=== PATIENT | male | born 1930 | race Caucasian/White ===

== ENCOUNTER 2017-09-10 18:55 | Observation (INO) ==
[2017-09-10] MEDS ORDERED: Ipratropium/Albuterol Neb 3 ML IH ONE (19:33)
[2017-09-10 19:34] LABS: Basophils # 0.1 K/mcL (0.0-0.2); Basophils % 0.5 %; Eosinophils # 0.2 K/mcL (0.0-0.6); Eosinophils % 1.9 %; Hematocrit 45.8 % (37.5-50.1); Hemoglobin 15.8 g/dL (12.9-16.9); Immature Granulocytes % 0.7 % (0-4); Lymphocytes # 1.8 K/mcL (0.6-4.6); Lymphocytes % 16.1 %; Mean Corpuscular HGB Conc 34.5 g/dL (31.6-35.5); Mean Corpuscular Hemoglobin 30.8 pg (28.0-33.3); Mean Corpuscular Volume 89.3 fL (83.0-100.0); Monocytes # 0.8 K/mcL (0.0-1.3); Monocytes % 6.9 %; Neutrophils # 8.2 K/mcL (1.6-8.9); Platelet Count 227 K/mcL (140-400); Red Blood Count 5.13 M/mcL (4.19-5.50); Red Cell Distribution Width 14.6 % (11.5-14.5); Segmented Neutrophils % 73.9 %
[2017-09-10 19:39] LABS: VBG HCO3 27 mEq/L (21-27); VBG PCO2 53 mmHg (41-51); VBG PH 7.32 pH Units (7.32-7.42); VBG PO2 29 mmHg (25-50)
--- NOTE | 2017-09-10 19:41 | Emergency Department Note ---
Disposition Clinical Impression: Hyperglycemia, Generalized weakness CKD (chronic kidney disease) Qualifiers: Chronic kidney disease stage: unspecified stage Qualified Code(s): N18.9 - Chronic kidney disease, unspecified Community acquired pneumonia Qualifiers: Laterality: unspecified laterality Qualified Code(s): J18.9 - Pneumonia, unspecified organism Disposition: Admitted As Inpatient Condition: Good General Adult HPI - General Chief complaint: ED Recheck/Abnormal Lab/Rx Stated complaint: blood sugar >400 x 2 wks Time Seen by Provider: 09/10/17 19:04 Source: patient Mode of arrival: private vehicle Limitations: no limitations Nursing Notes Reviewed: Yes Vital Signs Reviewed: Yes - History of Present Illness HPI Narrative: 86-year-old male history of dementia, diabetes who presents to the ER with a chief complaint of elevated blood glucose for 2 weeks. History is obtained from his significant other. She states that for the last 2 weeks his glucose readings have been over 400. No new changes in his medications. States that previously he was in the low 100s. States that there are several other issues going on which are chronic in nature including mixing at nights and days as well as intermittent delirium. He also fell out of bed yesterday which was unwitnessed and the patient is unable to say exactly what happened. 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 States that she feels nervous at times at home and is afraid taking care of him. No other complaints. Pt Subjective Complaint: Hyperglycemia Onset (ago): week(s) Pain Scale: 0 Improves with: nothing Worsens with: nothing Associated symptoms: Reports: weakness Treatments Prior to Arrival: none - Related Data Home Medications Medication Instructions Recorded Confirmed Cholecalciferol (Vitamin D3) 2,000 unit PO DAILY 05/24/15 05/06/16 [Vitamin D3] Finasteride [Proscar] 5 mg PO DAILY 05/24/15 05/06/16 Glimepiride [Amaryl] 4 mg PO DAILY 05/24/15 05/06/16 Pravastatin Sodium 10 mg PO DAILY 05/24/15 05/06/16 Sertraline [Zoloft] 50 mg PO DAILY 05/24/15 05/06/16 Tamsulosin HCl 0.4 mg PO DAILY 06/16/15 05/06/16 Azelastine 0.1% Nasal [place] 1 spray NS BID 03/09/16 05/06/16 [Astelin] Calcitriol [Rocaltrol] 0.5 mcg PO DAILY 03/09/16 05/06/16 Gabapentin [Neurontin] 300 mg PO HS 04/25/16 05/06/16 Previous Rx's Medication Instructions Recorded Docusate [Colace] 100 mg PO BID #60 capsule 06/17/15 Clopidogrel [Plavix] 75 mg PO DAILY #30 tablet 03/12/16 amLODIPine [Norvasc] 5 mg PO DAILY #30 tablet 05/07/16 Acetaminophen [Tylenol] 500 mg PO Q6HR PRN #20 tablet 03/01/17 predniSONE [PredniSONE] 20 mg PO BID #10 tablet 03/01/17 Allergies Allergy/AdvReac Type Severity Reaction Status Date / Time No Known Allergies Allergy Verified 09/10/17 18:58 All systems ED: reviewed and negative except as stated. Cardiovascular: Denies: chest pain Respiratory: Reports: cough, dyspnea Gastrointestinal: Denies: abdominal pain, nausea, vomiting Neurological: Reports: weakness. Denies: numbness, paresthesias Past Medical History - Past Medical History Attestation: Yes The following information was validated with the patient. Source: patient, obtained from family Medical history: Reports: CVA, diabetes, hyperlipidemia, hypertension, renal disease, other Surgical history: Reports: orthopedic, other Psychiatric history: Reports: no psych history - Social History Smoking Status: Current every day smoker Smokeless Tobacco Status: No Alcohol use: Reports: rarely Drug use: Reports: none Physical Exam - General Limitations: no limitations General appearance: alert, in no apparent distress - Head Head exam: atraumatic, normocephalic - Eye Eye exam: Present: normal appearance - ENT ENT exam: normal exam - Neck Neck exam: Present: normal inspection - Chest Chest inspection: Present: normal inspection, symmetric chest wall rise - Respiratory Respiratory exam: Present: wheezes (Mild end expiratory wheezing) - Cardiovascular Cardiovascular exam: Present: regular rate, normal rhythm, normal heart sounds - Abdominal Exam Abdominal exam: Present: soft, Non-Tender. Absent: tenderness - Extremities Exam Extremities exam: Present: normal inspection, full ROM - Expanded Upper Extremity Exam Shoulder exam: Present: normal inspection, full ROM Arm exam: Present: normal inspection, full ROM Elbow exam: Present: normal inspection, full ROM Forearm/Wrist exam: Present: normal inspection, full ROM Hand exam: Present: normal inspection, full ROM - Expanded Lower Extremity Exam Hip/Pelvis exam: Present: normal inspection, full ROM Upper leg exam: Present: normal inspection, full ROM Knee exam: Present: normal inspection, full ROM, abrasion (Left knee) Lower leg exam: Present: normal inspection, full ROM Ankle exam: Present: normal inspection, full ROM Foot/toe exam: Present: normal inspection, full ROM - Neurological Exam Neurological exam: Present: alert, other (GCS 15. Nonfocal. Follows commands. Moves all extremities equally.) - Skin Skin exam: Present: warm, dry Course Course Narrative: Patient seen and examined. Vital signs reviewed. Nonfocal. Plan for CT of the head as well as evaluation for potential DKA. - Reevaluation(s) Reevaluation #1: Labs reviewed. Hyperglycemic however no evidence of DKA. Patient given IV fluids. Discussed findings with patient and family. She is having trouble taking care of him at home. Plan to admit for generalized weakness, social service consultation in the morning. Vital Signs Temperature 97.8 F 09/10/17 18:59 Pulse Rate 71 09/10/17 18:59 Respiratory Rate 20 09/10/17 18:59 Blood Pressure 160/74 09/10/17 18:59 O2 Sat by Pulse Oximetry 98 09/10/17 18:59 Temperature 98.3 F 09/11/17 03:14 Pulse Rate 64 09/11/17 03:14 Respiratory Rate 15 09/11/17 03:14 Blood Pressure 121/63 09/11/17 03:14 O2 Sat by Pulse Oximetry 95 09/11/17 03:14 Oxygen Delivery Oxygen Delivery Nasal Cannula Medical Decision Making - [facility] Narrative Medical decision making narrative: 86-year-old male presents due to hyperglycemia and generalized weakness. Her glycemia for a few weeks. Also has become difficult for his significant other to care for him at home independently and she is uncomfortable with him going home. Labs reviewed here. Chest x-ray with bilateral opacities. Rocephin and Zithromax for community acquired pneumonia. Hyperglycemic with CKD however no evidence of DKA. CT head negative. Given IV fluids. Admitted for generalized weakness, hyperglycemia and for social service consultation. - Lab Data Lab results reviewed: Yes I reviewed the patient's lab results. Result diagrams: 09/10/17 19:23 09/10/17 19:23 Lab Results 09/10/17 09/10/17 09/10/17 Range/Units 19:07 19:23 19:23 WBC 11.1 (4.3-11.1) K/mcL RBC 5.13 (4.19-5.50) M/mcL Hgb 15.8 (12.9-16.9) g/dL Hct 45.8 (37.5-50.1) % MCV 89.3 (83.0-100.0) fL MCH 30.8 (28.0-33.3) pg MCHC 34.5 (31.6-35.5) g/dL RDW 14.6 H (11.5-14.5) % Plt Count 227 (140-400) K/mcL MPV 10.0 (9.4-12.4) fL Immature Gran % 0.7 (0-4) % Seg Neutrophils % 73.9 % Lymphocytes % 16.1 % Monocytes % 6.9 % Eosinophils % 1.9 % Basophils % 0.5 % Neutrophils # 8.2 (1.6-8.9) K/mcL Lymphocytes # 1.8 (0.6-4.6) K/mcL Monocytes # 0.8 (0.0-1.3) K/mcL Eosinophils # 0.2 (0.0-0.6) K/mcL Basophils # 0.1 (0.0-0.2) K/mcL VBG pH (7.32-7.42) pH Units VBG pCO2 (41-51) mmHg VBG pO2 (25-50) mmHg VBG HCO3 (21-27) mEq/L Sodium 137 (136-145) mEq/L Potassium 5.4 H (3.5-5.1) mEq/L Chloride 103 (98-107) mEq/L Carbon Dioxide 24 (23-29) mEq/L BUN 41 H (8-23) mg/dL Creatinine 3.03 H (0.70-1.30) mg/dL Est GFR ( Amer) 24 L (> 60) Est GFR (Non-Af Amer) 20 L (> 60) BUN/Creatinine Ratio 14 (6-26) Glucose 287 H (70-105) mg/dL POC Glucose 332 H (70-99) mg/dL Est Mean Plasma Glucose mg/dl Hemoglobin A1c ( - 5.6) % Calculated Osmolality 305 H (280-300) Calcium 9.5 (8.6-10.3) mg/dL Troponin I < 0.03 (< 0.04) ng/mL Beta-Hydroxybutyric Acd (0.02-0.27) mmol/L Urine Color (Yellow) Urine Clarity (Clear) Urine pH (5.0-8.0) pH Units Ur Specific [place] (1.010-1.025) Urine Protein (Neg-Trace) mg/dL Urine Glucose (UA) (Normal) mg/dL Urine Ketones (Negative) mg/dL Urine Blood (Negative) Urine Nitrite (Negative) Urine Bilirubin (Negative) Urine Urobilinogen (Normal) mg/dL Ur Leukocyte Esterase (Negative) Urine Microscopic RBC (0-3) per hpf Urine Microscopic WBC (0-3) per hpf Ur Squamous Epith Cells (None-Few) per lpf Urine Bacteria (None-Few) per hpf Hyaline Casts (None-Few) per lpf Ur Culture Indicated? (NO) 09/10/17 09/10/17 09/10/17 Range/Units 19:23 19:23 19:34 WBC (4.3-11.1) K/mcL RBC (4.19-5.50) M/mcL Hgb (12.9-16.9) g/dL Hct (37.5-50.1) % MCV (83.0-100.0) fL MCH (28.0-33.3) pg MCHC (31.6-35.5) g/dL RDW (11.5-14.5) % Plt Count (140-400) K/mcL MPV (9.4-12.4) fL Immature Gran % (0-4) % Seg Neutrophils % % Lymphocytes % % Monocytes % % Eosinophils % % Basophils % % Neutrophils # (1.6-8.9) K/mcL Lymphocytes # (0.6-4.6) K/mcL Monocytes # (0.0-1.3) K/mcL Eosinophils # (0.0-0.6) K/mcL Basophils # (0.0-0.2) K/mcL VBG pH 7.32 (7.32-7.42) pH Units VBG pCO2 53 H (41-51) mmHg VBG pO2 29 (25-50) mmHg VBG HCO3 27 (21-27) mEq/L Sodium (136-145) mEq/L Potassium (3.5-5.1) mEq/L Chloride (98-107) mEq/L Carbon Dioxide (23-29) mEq/L BUN (8-23) mg/dL Creatinine (0.70-1.30) mg/dL Est GFR ( Amer) (> 60) Est GFR (Non-Af Amer) (> 60) BUN/Creatinine Ratio (6-26) Glucose (70-105) mg/dL POC Glucose (70-99) mg/dL Est Mean Plasma Glucose 169 mg/dl Hemoglobin A1c 7.5 H ( - 5.6) % Calculated Osmolality (280-300) Calcium (8.6-10.3) mg/dL Troponin I (< 0.04) ng/mL Beta-Hydroxybutyric Acd 0.18 (0.02-0.27) mmol/L Urine Color (Yellow) Urine Clarity (Clear) Urine pH (5.0-8.0) pH Units Ur Specific [place] (1.010-1.025) Urine Protein (Neg-Trace) mg/dL Urine Glucose (UA) (Normal) mg/dL Urine Ketones (Negative) mg/dL Urine Blood (Negative) Urine Nitrite (Negative) Urine Bilirubin (Negative) Urine Urobilinogen (Normal) mg/dL Ur Leukocyte Esterase (Negative) Urine Microscopic RBC (0-3) per hpf Urine Microscopic WBC (0-3) per hpf Ur Squamous Epith Cells (None-Few) per lpf Urine Bacteria (None-Few) per hpf Hyaline Casts (None-Few) per lpf Ur Culture Indicated? (NO) 09/10/17 Range/Units 20:00 WBC (4.3-11.1) K/mcL RBC (4.19-5.50) M/mcL Hgb (12.9-16.9) g/dL Hct (37.5-50.1) % MCV (83.0-100.0) fL MCH (28.0-33.3) pg MCHC (31.6-35.5) g/dL RDW (11.5-14.5) % Plt Count (140-400) K/mcL MPV (9.4-12.4) fL Immature Gran % (0-4) % Seg Neutrophils % % Lymphocytes % % Monocytes % % Eosinophils % % Basophils % % Neutrophils # (1.6-8.9) K/mcL Lymphocytes # (0.6-4.6) K/mcL Monocytes # (0.0-1.3) K/mcL Eosinophils # (0.0-0.6) K/mcL Basophils # (0.0-0.2) K/mcL VBG pH (7.32-7.42) pH Units VBG pCO2 (41-51) mmHg VBG pO2 (25-50) mmHg VBG HCO3 (21-27) mEq/L Sodium (136-145) mEq/L Potassium (3.5-5.1) mEq/L Chloride (98-107) mEq/L Carbon Dioxide (23-29) mEq/L BUN (8-23) mg/dL Creatinine (0.70-1.30) mg/dL Est GFR ( Amer) (> 60) Est GFR (Non-Af Amer) (> 60) BUN/Creatinine Ratio (6-26) Glucose (70-105) mg/dL POC Glucose (70-99) mg/dL Est Mean Plasma Glucose mg/dl Hemoglobin A1c ( - 5.6) % Calculated Osmolality (280-300) Calcium (8.6-10.3) mg/dL Troponin I (< 0.04) ng/mL Beta-Hydroxybutyric Acd (0.02-0.27) mmol/L Urine Color Yellow (Yellow) Urine Clarity Clear (Clear) Urine pH 6.0 (5.0-8.0) pH Units Ur Specific [place] 1.017 (1.010-1.025) Urine Protein 100 H (Neg-Trace) mg/dL Urine Glucose (UA) >=1000 H (Normal) mg/dL Urine Ketones Negative (Negative) mg/dL Urine Blood Negative (Negative) Urine Nitrite Negative (Negative) Urine Bilirubin Negative (Negative) Urine Urobilinogen Normal (Normal) mg/dL Ur Leukocyte Esterase Negative (Negative) Urine Microscopic RBC 0-3 (0-3) per hpf Urine Microscopic WBC 3-5 H (0-3) per hpf Ur Squamous Epith Cells Moderate H (None-Few) per lpf Urine Bacteria None Seen (None-Few) per hpf Hyaline Casts None Seen (None-Few) per lpf Ur Culture Indicated? NO (NO) - Radiology Data Radiology results reviewed: Yes I reviewed the patient's radiology results. Head CT 09/10/17 19:33 IMPRESSION: 1. No acute intracranial abnormality 2. 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 3. Chronic bilateral mastoid air cell effusions. D/ / Darrius Lozada MD / Darrius Lozada MD Interpreting Provider: Darrius Lozada MD - EKG Data EKG #1 EKG attestation: Yes I reviewed and interpreted this EKG. EKG results narrative: EKG demonstrates sinus rhythm rate 61 bpm. Normal axis. Normal intervals. Normal R-wave progression. Nonspecific ST-T wave changes in lead 3. No gross ST elevations or depressions. No acute ischemic findings. No significant changes from previous EKG dated 05/06/16. Attestation Statement - Attestation Attestation: I examined this patient and my medical decision-making was reviewed with the Resident Physician. I agree with the documented findings, disposition and treatment plan as described except to the extent set forth below. Findings consistent with possible pneumonia as well as hyperglycemia. We will admit for further management of metabolic derangements as well as infectious processes.:
[2017-09-10 20:09] LABS: Bilirubin,Urine Negative (Negative); Blood,Urine Negative (Negative); Clarity,Urine Clear (Clear); Color,Urine Yellow (Yellow); Glucose,Urine (UA) >=1000 mg/dL (Normal); Ketones,Urine Negative (Negative); Leukocyte Esterase,Urine Negative (Negative); Nitrite,Urine Negative (Negative); Protein,Urine 100 mg/dL (Neg-Trace); Specific Gravity,Urine 1.017 (1.010-1.025); Urobilinogen,Urine Normal (Normal)
[2017-09-10 20:11] LABS: Bacteria,Urine None Seen per hpf (None-Few); Hyaline Casts,Urine None Seen per lpf (None-Few); RBC,Urine 0-3 per hpf (0-3); Squamous Epithelial Cell,Urine Moderate per lpf (None-Few)
[2017-09-10 20:18] LABS: Estimated Average Glucose 169 mg/dl; Hemoglobin A1C 7.5 %
[2017-09-10 20:24] LABS: BUN/Creatinine Ratio 14 (6-26); Blood Urea Nitrogen 41 mg/dL (8-23); Calcium 9.5 mg/dL (8.6-10.3); Carbon Dioxide 24 mEq/L (23-29); Chloride 103 mEq/L (98-107); Glucose 287 mg/dL (70-105); Osmolality,Calculated 305 (280-300); Potassium 5.4 mEq/L (3.5-5.1); Sodium 137 mEq/L (136-145); eGFR For African Americans 24 (> 60); eGFR For Non-African Americans 20 (> 60)
[2017-09-10 20:27] LABS: Troponin I < 0.03 ng/mL (< 0.04)
[2017-09-10] MEDS ORDERED: 0.9 % Sodium Chloride 1,000 ML IVC ONE (20:31)
[2017-09-10] MEDS ORDERED: Azithromycin 500 MG in D5% in Water 250 ML IVPB ONE (21:11)
[2017-09-10] MEDS ORDERED: cefTRIAXone 1,000 MG in Water for inj. (sterile) 20 ML 10 ML IVP ONE (21:11)
[2017-09-10] MEDS ORDERED: Acetaminophen 325 MG TABLET PO PRN (23:12)
[2017-09-10] MEDS ORDERED: Dextrose Gel 15 GM/37.5 ML TUBE PO PRN ×2 (23:12)
[2017-09-10] MEDS ORDERED: D5% in Water 1,000 ML IVC PRN (23:12)
[2017-09-10] MEDS ORDERED: *HR* Dextrose 50 % in Water (Syg) 50 ML SYRINGE IVP PRN (23:12)
[2017-09-10] MEDS ORDERED: Naloxone 0.4 MG/ML INJ IVP PRN (23:12)
--- NOTE | 2017-09-10 23:12 | Internal Med History&Physical ---
Date of Encounter: 09/10/17 Time of Encounter: 23:00 Internal Medicine - H&P: HPI Chief complaint: high blood sugars Admitted From: Emergency Dept Plans for Post Hospital Care: Transfer Shelter Facility History of present illness: Mr. Soria is a 86 year old male patient with a history of dementia, hypertension , diabetes, presented to the ER with complaints of high blood sugars. His blood sugars have been running high since 1 week. Has mostly been in the 200s but today was noted to be in the 400s and so he was brought into the ER. Patient is unable to provide history and history has been obtained from his . Patient currently denies any chest pain or palpitations. He has been having chronic cough but has not noted any changes recently. No sputum production. No fever or chills reported. His is the sole provider for him and so far she has been able to manage him at home. However patient appears to be having increasing episodes of delirium at home with worsening memory loss. Past Med Surg Social Fam HX - Past Medical History Source: obtained from family Medical history: CVA, diabetes, hyperlipidemia, hypertension, renal disease, other Additional medical history: BPH Psychiatric history: no psych history - Past Surgical History Surgical History: orthopedic, other Additional surgical history: neck surgery - Social History Smoking Status: Current every day smoker Smokeless Tobacco Status: No Alcohol use: rarely Drug use: none - Family History Sister Living Status: Hx Family Cardiac Disorders: No Hx Family Respiratory Disorders: No Hx Family Cancer: Yes Hx Family GI Disorders: No Hx Family Endocrine Disorder: No Hx Family Neuromuscular Disorders: No Hx Family Neurologic Disorders: No Hx Family HEENT Disorders: No Hx Family Autoimmune Disorders: No Brother Living Status: Still Living Hx Family Cardiac Disorders: Yes Hx Family Respiratory Disorders: No Hx Family Cancer: No Hx Family GI Disorders: No Hx Family Endocrine Disorder: Yes (diabetes) Hx Family Neuromuscular Disorders: No Hx Family Neurologic Disorders: No Hx Family HEENT Disorders: No Hx Family Autoimmune Disorders: No Father Living Status: Mother Adopted: No Family Member Ethnicity: Non- Living Status: Hx Family Cardiac Disorders: Yes (CHF) Hx Family Respiratory Disorders: No Hx Family Cancer: No Hx Family GI Disorders: No Hx Family Endocrine Disorder: No Hx Family Neuromuscular Disorders: No Hx Family Neurologic Disorders: No Hx Family HEENT Disorders: No Hx Family Autoimmune Disorders: No Internal Medicine - H&P: Meds Cholecalciferol (Vitamin D3) [Vitamin D3] 2,000 unit PO DAILY 05/24/15 [History] Finasteride [Proscar] 5 mg PO DAILY 05/24/15 [History] Glimepiride [Amaryl] 4 mg PO DAILY 05/24/15 [History] Pravastatin Sodium 10 mg PO DAILY 05/24/15 [History] Sertraline [Zoloft] 50 mg PO DAILY 05/24/15 [History] Tamsulosin HCl 0.4 mg PO DAILY 06/16/15 [History] Docusate [Colace] 100 mg PO BID #60 capsule 06/17/15 [Rx] Azelastine 0.1% Nasal [place] [Astelin] 1 spray NS BID 03/09/16 [History] Calcitriol [Rocaltrol] 0.5 mcg PO DAILY 03/09/16 [History] Clopidogrel [Plavix] 75 mg PO DAILY #30 tablet 03/12/16 [Rx] Gabapentin [Neurontin] 300 mg PO HS 04/25/16 [History] amLODIPine [Norvasc] 5 mg PO DAILY #30 tablet 05/07/16 [Rx] Acetaminophen [Tylenol] 500 mg PO Q6HR PRN #20 tablet 03/01/17 [Rx] predniSONE [PredniSONE] 20 mg PO BID #10 tablet 03/01/17 [Rx] 3 Allergy/AdvReac Type Severity Reaction Status Date / Time No Known Allergies Allergy Verified 09/10/17 18:58 All Systems PM: A 10-system review of systems was performed and is negative for pertinent findings except as documented above in the HPI. - Constitutional Constitutional: malaise, no chills, no fever(s), no night sweats - EENT Eyes: no change in vision, no discharge, no pain, no photophobia Ears: no ear discharge, no ear pain, no tinnitus Nose, mouth and throat: no dysphagia, no nasal discharge, no neck pain, no sore throat - Cardiovascular Cardiovascular ROS IM: no chest pain, no diaphoresis, no dyspnea, no lightheadedness, no palpitations, no syncope - Integumentary Integumentary IM: no rash, no unusual bruising - Neurological Neurological ROS: no confusion, no convulsions, no focal weakness, no numbness, no tingling, no tremor(s) - Psychiatric Psychiatric: confusion, memory loss - Hematologic/Lymphatic Hematologic/Lymphatic: no easy bruising - Constitutional Vitals: Temp Pulse Resp BP Pulse Ox 97.8 F 64 16 142/68 94 09/10/17 18:59 09/10/17 22:30 09/10/17 22:30 09/10/17 22:30 09/10/17 22:30 General appearance: Present: cooperative, A&O X 1, pleasant, answers questions appropriately - Eye Eye exam: Present: EOMI, conjuntiva pink, sclera anicteric - Neck Neck exam general surgery: Present: supple, trachea midline. Absent: lymphadenopathy - Respiratory Respiratory exam: Present: CTAB. Absent: accessory muscle use, rales, rhonchi, wheezes - Cardiovascular Cardiovascular exam: Present: RRR, +S1, +S2. Absent: diastolic murmur, gallop, rubs, systolic murmur - GI/Abdominal GI/Abdominal exam: Present: normal bowel sounds, soft, no peritoneal signs. Absent: distended, tenderness - Extremities Exam Extremities exam: Present: warm, radial pulses palpable and symmetrical. Absent : calf tenderness, cyanotic, pedal edema - Neurological Exam Neurological exam: Present: alert, CN II-XII intact, no focal deficits. Absent : facial droop, speech deficit - Skin Skin exam: Present: dry, intact Internal Med - H&P Results - Labs CBC & Chem 7: 09/10/17 19:23 09/10/17 19:23 - Impressions Impressions Head CT 09/10/17 19:33 IMPRESSION: 1. No acute intracranial abnormality 2. 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 3. Chronic bilateral mastoid air cell effusions. D/ / Darrius Lozada MD / Darrius Lozada MD Interpreting Provider: Darrius Lozada MD Chest X-Ray 09/10/17 20:32 IMPRESSION: Bilateral perihilar opacities suspicious for pneumonia or edema. D/ / 09/10/2017 21:08:55 David Negro MD / nemo Interpreting Provider: David Negro MD - Assessment and plan (1) Pneumonia Current Visit: Yes Status: Suspected Assessment and plan: Chest x-ray shows bilateral perihilar airspace disease concerning for pneumonia or edema. We will start patient on empiric antibiotics for now. Follow blood cultures. Reevaluate with repeat chest x-ray. Moderate risk for complications. Qualifiers: Pneumonia type: due to Pneumococcus Laterality: bilateral Lung location: unspecified part of lung Qualified Code(s): J13 - Pneumonia due to Streptococcus pneumoniae (2) CKD (chronic kidney disease) stage 3, GFR 30-59 ml/min Current Visit: Yes Status: Chronic Assessment and plan: Creatinine slightly elevated over baseline. We will follow renal function in dose medications accordingly. Avoid nephrotoxic agents. (3) Dementia Current Visit: Yes Status: Chronic Assessment and plan: With reported intermittent episodes of confusion at home. Will monitor for signs of delirium. Fall precautions. Qualifiers: Dementia type: Alzheimer's disease Alzheimer's disease onset: unspecified onset Dementia behavioral disturbance: without behavioral disturbance Qualified Code(s): G30.9 - Alzheimer's disease, unspecified; F02.80 - Dementia in other diseases classified elsewhere without behavioral disturbance (4) Hyperkalemia Current Visit: Yes Status: Acute Assessment and plan: Potassium is 5.4. Patient received albuterol nebs in the ER. We will recheck levels in the morning. (5) Hypertension Current Visit: No Status: Chronic Qualifiers: Hypertension type: essential hypertension Qualified Code(s): I10 - Essential (primary) hypertension (6) Type 2 diabetes mellitus Current Visit: Yes Status: Chronic Assessment and plan: Blood sugar 287 on arrival here. A1c 7.5. We will place him on sliding scale insulin coverage and diabetic diet. Qualifiers: Diabetes mellitus manager intermediate insulin use: without longterm use Diabetes mellitus complication status: with kidney complications Diabetes mellitus complication detail: with chronic kidney disease Chronic kidney disease stage : stage 3 (moderate) Qualified Code(s): E11.22 - Type 2 diabetes mellitus with diabetic chronic kidney disease; N18.3 - Chronic kidney disease, stage 3 ( moderate) (7) Hypertension Current Visit: Yes Status: Chronic Assessment and plan: Monitor blood pressure. Continue amlodipine. Qualifiers: Hypertension type: essential hypertension Qualified Code(s): I10 - Essential (primary) hypertension - Time Spent With Patient Total time spent is greater than 50% in coordination of care (as documented) at patient's floor/unit and/or counseling patient:
[2017-09-10] MEDS: *HR* HYDROcodone/Acet 5/325 mg TABLET PO PRN (23:57)
[2017-09-11] MEDS ORDERED: Ipratropium/Albuterol Neb 3 ML IH PRN (00:23)
[2017-09-11] MEDS: *HR* Heparin 5,000 UNIT/ML VIAL SQ SCH ×2 (05:44→17:40)
[2017-09-11 07:13] LABS: Basophils # 0.1 K/mcL (0.0-0.2); Basophils % 0.6 %; Eosinophils # 0.3 K/mcL (0.0-0.6); Eosinophils % 2.2 %; Hematocrit 39.4 % (37.5-50.1); Immature Granulocytes % 0.5 % (0-4); Lymphocytes # 2.2 K/mcL (0.6-4.6); Lymphocytes % 18.5 %; Mean Corpuscular HGB Conc 33.2 g/dL (31.6-35.5); Mean Corpuscular Hemoglobin 29.8 pg (28.0-33.3); Mean Corpuscular Volume 89.7 fL (83.0-100.0); Mean Platelet Volume 10.4 fL (9.4-12.4); Neutrophils # 8.5 K/mcL (1.6-8.9); Platelet Count 220 K/mcL (140-400); Red Blood Count 4.39 M/mcL (4.19-5.50); Red Cell Distribution Width 14.4 % (11.5-14.5); Segmented Neutrophils % 70.2 %
[2017-09-11 07:20] LABS: Calcium 8.6 mg/dL (8.6-10.3); Hemoglobin 13.1 g/dL (12.9-16.9); Potassium 4.4 mEq/L (3.5-5.1)
[2017-09-11] MEDS: Insulin LISPRO 300 UNITS/3 ML VIAL SQ SCH ×4 (08:00→21:30)
[2017-09-11] MEDS: cefTRIAXone 2,000 MG in Water for inj. (sterile) 20 ML 20 ML IVPB SCH (09:40)
[2017-09-11] MEDS: amLODIPine 5 MG TABLET PO SCH (09:40)
[2017-09-11] MEDS: Azithromycin 250 MG TABLET PO SCH (09:40)
--- NOTE | 2017-09-11 10:58 | Internal Med Progress Note ---
Date of Encounter: 09/11/17 Time of Encounter: 10:54 - Assessment and plan (1) Pneumonia Current Visit: Yes Status: Suspected Assessment and plan: Chest x-ray shows bilateral perihilar airspace disease concerning for pneumonia or edema Mild leukocytosis with WBC of 12.1 Patient denies any shortness of breath, lungs clear/diminished throughout AP and L Continue empiric antibiotics for now (Zithromax and Rocephin). Follow blood cultures Legionella and strep pneumo antigen-f/u Reevaluate with repeat chest x-ray in a.m. Qualifiers: Pneumonia type: due to Pneumococcus Laterality: bilateral Lung location: unspecified part of lung Qualified Code(s): J13 - Pneumonia due to Streptococcus pneumoniae (2) Hypertension Current Visit: Yes Status: Chronic Assessment and plan: Hypertension, BP stable. Continue Norvasc monitor at adjunct therapy as needed Qualifiers: Hypertension type: essential hypertension Qualified Code(s): I10 - Essential (primary) hypertension (3) Type 2 diabetes mellitus Current Visit: Yes Status: Chronic Assessment and plan: Hyperglycemia, in the setting of type 2 diabetes. Patient reports blood glucose normally well controlled He has been having blood glucose readings in the 200-400 range over the last week Blood sugar 287 on arrival here. A1c 7.5. Placed on sliding scale insulin coverage with basal coverage and diabetic diet Episode of hypoglycemia this morning, correct Blood glucose improving this morning, continue current insulin regimen and adjust as necessary Qualifiers: Diabetes mellitus care home insulin use: without care home use Diabetes mellitus complication status: with kidney complications Diabetes mellitus complication detail: with chronic kidney disease Chronic kidney disease stage : stage 3 (moderate) Qualified Code(s): E11.22 - Type 2 diabetes mellitus with diabetic chronic kidney disease; N18.3 - Chronic kidney disease, stage 3 ( moderate) (4) Hyperkalemia Current Visit: Yes Status: Resolved Assessment and plan: Potassium is 5.4. Patient received albuterol nebs in the ER. Hyperkalemia resolved, daily labs (5) CKD (chronic kidney disease) stage 3, GFR 30-59 ml/min Current Visit: Yes Status: Chronic Assessment and plan: Serum creatinine and patient's baseline, We will follow renal function in dose medications accordingly. Avoid nephrotoxic agents. (6) Dementia Current Visit: Yes Status: Chronic Assessment and plan: With reported intermittent episodes of confusion at home. Will monitor for signs of delirium. Fall precautions. Qualifiers: Dementia type: Alzheimer's disease Alzheimer's disease onset: unspecified onset Dementia behavioral disturbance: without behavioral disturbance Qualified Code(s): G30.9 - Alzheimer's disease, unspecified; F02.80 - Dementia in other diseases classified elsewhere without behavioral disturbance - Time Spent With Patient Total time spent is greater than 50% in coordination of care (as documented) at patient's floor/unit and/or counseling patient: 25 - 35 minutes - Subjective Interval history: No acute changes overnight, patient seen and examined at bedside today. Reports that he is not short of breath. Reports he feels much better than admission now that his blood glucose has been controlled. - Constitutional Vitals: Temp Pulse Resp BP Pulse Ox 97.8 F 66 18 134/66 93 09/11/17 06:39 09/11/17 06:39 09/11/17 06:39 09/11/17 06:39 09/11/17 09:56 General appearance: Present: cooperative, A&O X 1, pleasant, answers questions appropriately - Head Head exam: Present: atraumatic, normocephalic - Eye Eye exam: Present: PERRL, conjuntiva pink, sclera anicteric Pupils: Present: PERRL - Neck Neck exam general surgery: Present: supple, trachea midline. Absent: lymphadenopathy - Respiratory Respiratory exam: Present: decreased breath sounds, CTAB. Absent: accessory muscle use, rales, rhonchi, wheezes - Cardiovascular Cardiovascular exam: Present: RRR, +S1, +S2. Absent: diastolic murmur, gallop, rubs, systolic murmur - GI/Abdominal GI/Abdominal exam: Present: normal bowel sounds, soft, no peritoneal signs. Absent: distended, tenderness - Extremities Exam Extremities exam: Present: warm, radial pulses palpable and symmetrical. Absent : calf tenderness, cyanotic, pedal edema - Neurological Exam Neurological exam: Present: CN II-XII intact, oriented X3, no focal deficits. Absent: pronater drift, facial droop, speech deficit - Skin Skin exam: Present: dry, intact Internal Medicine: Result - Labs CBC & Chem 7: 09/11/17 05:51 09/11/17 05:51 Labs: Short CBC 09/11/17 Range/Units 05:51 WBC 12.1 H (4.3-11.1) K/mcL Hgb 13.1 D (12.9-16.9) g/dL Hct 39.4 (37.5-50.1) % Plt Count 220 (140-400) K/mcL Neutrophils # 8.5 (1.6-8.9) K/mcL [facility] 09/11/17 05:51 Sodium 140 Potassium 4.4 Chloride 113 H Carbon Dioxide 22 L BUN 36 H Creatinine 2.73 H Glucose 59 L Calcium 8.6 Consult Discharge Plan - Plan Referrals: Ramandeep eGrber MD [Primary Care Provider] -
[2017-09-11] MEDS ORDERED: Insulin DETEMIR 100 UNIT/ML X5UNITS SQ SCH (21:00)
[2017-09-11] MEDS: Gabapentin 300 MG CAPSULE PO SCH (21:34)
[2017-09-12] MEDS: *HR* Heparin 5,000 UNIT/ML VIAL SQ SCH ×2 (06:01→17:54)
[2017-09-12 08:08] LABS: Basophils # 0.1 K/mcL (0.0-0.2); Basophils % 0.6 %; Eosinophils # 0.1 K/mcL (0.0-0.6); Eosinophils % 1.3 %; Hematocrit 43.7 % (37.5-50.1); Immature Granulocytes % 0.7 % (0-4); Lymphocytes # 1.8 K/mcL (0.6-4.6); Lymphocytes % 17.8 %; Mean Corpuscular HGB Conc 33.6 g/dL (31.6-35.5); Mean Corpuscular Volume 89.2 fL (83.0-100.0); Mean Platelet Volume 10.7 fL (9.4-12.4); Monocytes # 0.9 K/mcL (0.0-1.3); Monocytes % 8.6 %; Platelet Count 215 K/mcL (140-400); Red Cell Distribution Width 14.6 % (11.5-14.5)
[2017-09-12 08:11] LABS: Hemoglobin 14.7 g/dL (12.9-16.9)
[2017-09-12] MEDS: amLODIPine 5 MG TABLET PO SCH (09:05)
[2017-09-12] MEDS: Azithromycin 250 MG TABLET PO SCH (09:05)
[2017-09-12] MEDS: cefTRIAXone 2,000 MG in Water for inj. (sterile) 20 ML 20 ML IVPB SCH (09:05)
[2017-09-12] MEDS: Insulin LISPRO 300 UNITS/3 ML VIAL SQ SCH ×3 (09:06→21:31)
[2017-09-12 10:20] LABS: Calcium 9.2 mg/dL (8.6-10.3); Potassium 4.3 mEq/L (3.5-5.1)
--- NOTE | 2017-09-12 18:28 | Internal Med Progress Note ---
Date of Encounter: 09/12/17 Time of Encounter: 18:26 - Assessment and plan (1) Pneumonia Current Visit: Yes Status: Suspected Assessment and plan: Admitted for hyperglycemia Imaging CXR with incidental fidings of bilateral perihilar airspace disease concerning for pneumonia or edema Repeat CXR today shows mildly worsening bilateral lung opacities superimposed on chronic lung changes edema versus pneumonia Does not appear volume overloaded Respiratory status stable, lungs clear/diminished throughout AP and L, afebrile , WBC improving with ABX 9.9 today Continue empiric antibiotics for now (Zithromax and Rocephin). Follow blood cultures Legionella and strep pneumo antigen-negative. Qualifiers: Pneumonia type: due to Pneumococcus Laterality: bilateral Lung location: unspecified part of lung Qualified Code(s): J13 - Pneumonia due to Streptococcus pneumoniae (2) Hypertension Current Visit: Yes Status: Chronic Assessment and plan: Hypertension, BP stable. Continue Norvasc monitor at adjunct therapy as needed Qualifiers: Hypertension type: essential hypertension Qualified Code(s): I10 - Essential (primary) hypertension (3) Type 2 diabetes mellitus Current Visit: Yes Status: Chronic Assessment and plan: Hyperglycemia, in the setting of type 2 diabetes. Patient reports blood glucose normally well controlled He has been having blood glucose readings in the 200-400 range over the last week Blood sugar 287 on arrival here. A1c 7.5. 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: without intermediate manager use Diabetes mellitus complication status: with kidney complications Diabetes mellitus complication detail: with chronic kidney disease Chronic kidney disease stage : stage 3 (moderate) Qualified Code(s): E11.22 - Type 2 diabetes mellitus with diabetic chronic kidney disease; N18.3 - Chronic kidney disease, stage 3 ( moderate) (4) Hyperkalemia Current Visit: Yes Status: Resolved Assessment and plan: Potassium is 4.3 (5) CKD (chronic kidney disease) stage 3, GFR 30-59 ml/min Current Visit: Yes Status: Chronic Assessment and plan: Serum creatinine and patient's baseline, We will follow renal function in dose medications accordingly. Avoid nephrotoxic agents. (6) Dementia Current Visit: Yes Status: Chronic Assessment and plan: With reported intermittent episodes of confusion at home. Will monitor for signs of delirium. Fall precautions. Qualifiers: Dementia type: Alzheimer's disease Alzheimer's disease onset: unspecified onset Dementia behavioral disturbance: without behavioral disturbance Qualified Code(s): G30.9 - Alzheimer's disease, unspecified; F02.80 - Dementia in other diseases classified elsewhere without behavioral disturbance - Time Spent With Patient Total time spent is greater than 50% in coordination of care (as documented) at patient's floor/unit and/or counseling patient: 25 - 35 minutes - Subjective Interval history: No acute changes overnight, patient seen and examined at bedside today. Reports that he is not short of breath denies cough. Reports he feels much better than admission now that his blood glucose has been controlled. - Constitutional Vitals: Temp Pulse Resp BP Pulse Ox 98.0 F 63 15 165/85 93 09/12/17 15:21 09/12/17 15:21 09/12/17 15:21 09/12/17 15:21 09/12/17 15:21 General appearance: Present: cooperative, A&O X 1, pleasant, answers questions appropriately - Head Head exam: Present: atraumatic, normocephalic - Eye Eye exam: Present: PERRL, conjuntiva pink, sclera anicteric Pupils: Present: PERRL - Neck Neck exam general surgery: Present: supple, trachea midline. Absent: lymphadenopathy - Respiratory Respiratory exam: Present: CTAB. Absent: accessory muscle use, rales, rhonchi, wheezes - Cardiovascular Cardiovascular exam: Present: RRR, +S1, +S2. Absent: diastolic murmur, gallop, rubs, systolic murmur - GI/Abdominal GI/Abdominal exam: Present: normal bowel sounds, soft, no peritoneal signs. Absent: distended, tenderness - Extremities Exam Extremities exam: Present: warm, radial pulses palpable and symmetrical. Absent : calf tenderness, cyanotic, pedal edema - Neurological Exam Neurological exam: Present: CN II-XII intact, oriented X3, no focal deficits. Absent: pronater drift, facial droop, speech deficit - Skin Skin exam: Present: dry, intact Internal Medicine: Result - Labs CBC & Chem 7: 09/12/17 06:28 09/12/17 06:28 Labs: Short CBC 09/12/17 Range/Units 06:28 WBC 9.9 (4.3-11.1) K/mcL Hgb 14.7 D (12.9-16.9) g/dL Hct 43.7 (37.5-50.1) % Plt Count 215 (140-400) K/mcL Neutrophils # 7.0 (1.6-8.9) K/mcL BMP 09/12/17 06:28 Sodium 141 Potassium 4.3 Chloride 113 H Carbon Dioxide 21 L BUN 35 H Creatinine 2.53 H Glucose 66 L Calcium 9.2 - Impressions Impressions Chest X-Ray 09/12/17 06:00 IMPRESSION: There is mildly worsening bilateral lung opacities superimposed on chronic lung change. This could be due to edema or pneumonia. D/ / Luis Antonio Garcia MD / Luis Antonio Garcia MD Interpreting Provider: Luis Antonio Garcia MD Consult Discharge Plan - Plan Referrals: Ashley Dunlap MD [Primary Care Provider] -
[2017-09-12] MEDS: *HR* HYDROcodone/Acet 5/325 mg TABLET PO PRN (21:44)
[2017-09-12] MEDS: Gabapentin 300 MG CAPSULE PO SCH (21:45)
[2017-09-12] MEDS: Insulin DETEMIR 100 UNIT/ML X5UNITS SQ SCH (21:45)
[2017-09-13] MEDS: *HR* Heparin 5,000 UNIT/ML VIAL SQ SCH ×2 (06:00→17:39)
[2017-09-13 08:28] LABS: Basophils # 0.1 K/mcL (0.0-0.2); Basophils % 0.5 %; Eosinophils # 0.2 K/mcL (0.0-0.6); Eosinophils % 2.3 %; Hematocrit 46.5 % (37.5-50.1); Hemoglobin 15.5 g/dL (12.9-16.9); Immature Granulocytes % 0.4 % (0-4); Lymphocytes # 1.8 K/mcL (0.6-4.6); Lymphocytes % 18.3 %; Mean Corpuscular HGB Conc 33.3 g/dL (31.6-35.5); Mean Corpuscular Hemoglobin 29.2 pg (28.0-33.3); Mean Corpuscular Volume 87.6 fL (83.0-100.0); Mean Platelet Volume 10.2 fL (9.4-12.4); Monocytes # 0.9 K/mcL (0.0-1.3); Monocytes % 9.3 %; Neutrophils # 6.8 K/mcL (1.6-8.9); Platelet Count 213 K/mcL (140-400); Red Blood Count 5.31 M/mcL (4.19-5.50); Red Cell Distribution Width 14.5 % (11.5-14.5); Segmented Neutrophils % 69.2 %
[2017-09-13] MEDS: amLODIPine 5 MG TABLET PO SCH (08:33)
[2017-09-13] MEDS: Azithromycin 250 MG TABLET PO SCH (08:33)
[2017-09-13] MEDS: cefTRIAXone 2,000 MG in Water for inj. (sterile) 20 ML 20 ML IVPB SCH (08:33)
[2017-09-13] MEDS: Insulin LISPRO 300 UNITS/3 ML VIAL SQ SCH ×4 (08:34→21:49)
[2017-09-13 08:45] LABS: Calcium 9.3 mg/dL (8.6-10.3); Potassium 4.2 mEq/L (3.5-5.1)
--- NOTE | 2017-09-13 16:47 | Electrocardiograph Report ---
[address] [place], [place] [address] Test Date: 2017-09-10 Pat Name: Ari Soria Department: 104 Room: 3B Gender: M Community Dietitian: [facility] : 1930 Requested By: Sage Coello Order Number: [id number] Reading MD: Arias Skelton Measurements Intervals [place] Rate: 61 P: 71 DC: 186 QRS: -20 QRSD: 110 T: 37 QT: 396 QTc: 398 Interpretive Statements ELECTRONIC ATRIAL PACEMAKER BASELINE ARTIFACT Electronically Signed On 09-13-2017 16:46:03 EDT by Arias Skelton
--- NOTE | 2017-09-13 19:00 | Internal Med Progress Note ---
Date of Encounter: 09/13/17 Time of Encounter: 09:50 - Assessment and plan (1) Hypertension Current Visit: Yes Status: Chronic Assessment and plan: Chronic. Continue home medications. Stable. Qualifiers: Hypertension type: essential hypertension Qualified Code(s): I10 - Essential (primary) hypertension (2) Type 2 diabetes mellitus Current Visit: Yes Status: Chronic Assessment and plan: A1c 7.5% in 09/10/17. Poorly controlled. Continue sliding scale insulin, Accu-Cheks before meals and at bedtime, diabetic diet. 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 (4) CKD (chronic kidney disease) stage 3, GFR 30-59 ml/min Current Visit: Yes Status: Chronic Assessment and plan: Function continues to improve. Serum creatinine 2.6, GFR 23. These actually appear to be the patient's recent baseline. Continue to monitor labs and avoid nephrotoxic agents. (5) Dementia Current Visit: Yes Status: Chronic Assessment and plan: reports that patient has returned to baseline. Continue to monitor for safety and falls. Qualifiers: Dementia type: Alzheimer's disease Alzheimer's disease onset: unspecified onset Dementia behavioral disturbance: without behavioral disturbance Qualified Code(s): G30.9 - Alzheimer's disease, unspecified; F02.80 - Dementia in other diseases classified elsewhere without behavioral disturbance (6) Pneumonia Current Visit: Yes Status: Suspected Assessment and plan: Patient denies chest pain, shortness of breath, productive cough. 65 score 2 points moderate risk 6.8% 30 day mortality. He is not requiring supplemental oxygen at this time. Other vitals are stable. Patient is afebrile. Continue empiric antibiotics of Zithromax and Rocephin for community-acquired pneumonia. Legionella and strep pneumo were negative. Transition patient to by mouth antibiotics and look at discharging tomorrow. Qualifiers: Pneumonia type: due to Pneumococcus Laterality: bilateral Lung location: unspecified part of lung Qualified Code(s): J13 - Pneumonia due to Streptococcus pneumoniae - Time Spent With Patient Total time spent is greater than 50% in coordination of care (as documented) at patient's floor/unit and/or counseling patient: less than 15 minutes - Subjective Interval history: She was seen and assessed initially at 9:50 AM. He was drowsy. His physical exam was unremarkable, patient stated that he wanted to go to sleep was unable to answer questions. Later, he went back and was visiting with patient and . He denies any headache or blurred vision. He denies any nausea or vomiting, no abdominal pain. He states that he is feeling better and does not have shortness of breath or chest pain. Discussed at length patient's plan of care with , she verbalized understanding. Patient verbalized frustration with having to stay, states that he wants to go home and we will discuss again tomorrow. Patient was pleasant. - Constitutional Vitals: Temp Pulse Resp BP Pulse Ox 98.1 F 64 14 141/63 94 09/13/17 18:34 09/13/17 18:34 09/13/17 18:34 09/13/17 18:34 09/13/17 18:34 General appearance: Present: cooperative, A&O X 1, pleasant, no acute distress, answers questions appropriately - Head Head exam: Present: atraumatic, normal inspection, normocephalic - Eye Eye exam: Present: normal appearance, conjuntiva pink, sclera anicteric - Neck Neck exam general surgery: Present: supple, trachea midline. Absent: lymphadenopathy, tenderness - Respiratory Respiratory exam: Present: decreased breath sounds, CTAB. Absent: accessory muscle use, chest wall tenderness, rales, respiratory distress, rhonchi, wheezes - Cardiovascular Cardiovascular exam: Present: RRR, +S1, +S2. Absent: diastolic murmur, gallop, rubs, systolic murmur - GI/Abdominal GI/Abdominal exam: Present: normal bowel sounds, soft. Absent: distended, hepatomegaly, tenderness - Extremities Exam Extremities exam: Present: normal capillary refill, normal inspection, warm, radial pulses palpable and symmetrical. Absent: calf tenderness, cyanotic, pedal edema, tenderness - Neurological Exam Neurological exam: Present: alert, oriented X3, no focal deficits. Absent: facial droop, speech deficit - Skin Skin exam: Present: dry, intact, normal color, warm. Absent: rash Internal Medicine: Result - Labs CBC & Chem 7: 09/13/17 06:30 09/13/17 06:30 Labs: Short CBC 09/13/17 Range/Units 06:30 WBC 9.8 (4.3-11.1) K/mcL Hgb 15.5 (12.9-16.9) g/dL Hct 46.5 (37.5-50.1) % Plt Count 213 (140-400) K/mcL Neutrophils # 6.8 (1.6-8.9) K/mcL BMP 09/13/17 06:30 Sodium 140 Potassium 4.2 Chloride 111 H Carbon Dioxide 20 L BUN 33 H Creatinine 2.60 H Glucose 56 L Calcium 9.3 Consult Discharge Plan - Plan Referrals: Ashley Dunlap MD [Primary Care Provider] - 09/22/17 11:30 am
[2017-09-13] MEDS: Gabapentin 300 MG CAPSULE PO SCH (21:44)
[2017-09-13] MEDS: Insulin DETEMIR 100 UNIT/ML X5UNITS SQ SCH (22:50)
[2017-09-14 05:16] LABS: Basophils # 0.1 K/mcL (0.0-0.2); Basophils % 0.7 %; Eosinophils # 0.3 K/mcL (0.0-0.6); Eosinophils % 2.8 %; Hematocrit 46.7 % (37.5-50.1); Hemoglobin 15.6 g/dL (12.9-16.9); Immature Granulocytes % 0.6 % (0-4); Lymphocytes # 1.9 K/mcL (0.6-4.6); Mean Corpuscular HGB Conc 33.4 g/dL (31.6-35.5); Mean Corpuscular Hemoglobin 29.1 pg (28.0-33.3); Mean Corpuscular Volume 87.1 fL (83.0-100.0); Mean Platelet Volume 10.1 fL (9.4-12.4); Monocytes % 9.9 %; Neutrophils # 7.1 K/mcL (1.6-8.9); Platelet Count 196 K/mcL (140-400); Red Blood Count 5.36 M/mcL (4.19-5.50); Red Cell Distribution Width 14.5 % (11.5-14.5)
[2017-09-14] MEDS: *HR* Heparin 5,000 UNIT/ML VIAL SQ SCH (05:45)
[2017-09-14 07:39] LABS: Calcium 9.2 mg/dL (8.6-10.3); Potassium 4.3 mEq/L (3.5-5.1)
[2017-09-14] MEDS: Insulin LISPRO 300 UNITS/3 ML VIAL SQ SCH ×2 (09:45→12:27)
[2017-09-14] MEDS: amLODIPine 5 MG TABLET PO SCH (09:45)
[2017-09-14] MEDS: cefTRIAXone 2,000 MG in Water for inj. (sterile) 20 ML 20 ML IVPB SCH (09:45)
[2017-09-14] MEDS: Azithromycin 250 MG TABLET PO SCH (09:45)
[2017-09-14 12:00] VITALS: BP 149/77
--- NOTE | 2017-09-14 12:27 | Discharge Summary ---
- NOTES TO OUTPATIENT PROVIDER Notes to Outpatient Provider: Pt was admitted and treated for CAP. Pt has improved on IV antibiotics and will continue course of antibiotics at home. Date of Encounter: 09/14/17 Time of Encounter: 12:00 - Discharge Diagnosis (1) Hypertension Priority: Secondary Status: Chronic Assessment and Plan: Stable. Continue home medications. Qualifiers: Hypertension type: essential hypertension Qualified Code(s): I10 - Essential (primary) hypertension (2) Type 2 diabetes mellitus Priority: Secondary Status: Chronic Assessment and Plan: Poorly controlled with elevated A1c. Continue home medications. 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 (4) CKD (chronic kidney disease) stage 3, GFR 30-59 ml/min Priority: Secondary Status: Chronic Assessment and Plan: Renal function showing continued improvement. Serum creatinine 2.56, GFR 24. At patient's baseline. Follow with primary care. (5) Dementia Priority: Secondary Status: Chronic Assessment and Plan: Patient at baseline mentation. Qualifiers: Dementia type: Alzheimer's disease Alzheimer's disease onset: unspecified onset Dementia behavioral disturbance: without behavioral disturbance Qualified Code(s): G30.9 - Alzheimer's disease, unspecified; F02.80 - Dementia in other diseases classified elsewhere without behavioral disturbance (6) Pneumonia Priority: Secondary Status: Suspected Assessment and Plan: Patient denies chest pain, shortness of breath, productive cough, states that he is ready to go home and feels good. Curb 65 score 2 points moderate risk 6.8% 30 day mortality. Patient is on room air. He is afebrile vitals are stable. Continue Zithromax po at home Qualifiers: Pneumonia type: due to Pneumococcus Laterality: bilateral Lung location: unspecified part of lung Qualified Code(s): J13 - Pneumonia due to Streptococcus pneumoniae Hospital course: Mr. Soria is a 86 year old male with past medical history of renal lesion, chronic renal failure, diabetes, dementia, hypertension, CVA. Patient presented to the emergency department from home with complaint of elevated blood sugars. Patient is hyperglycemic with blood glucose as high as 400. Patient reported chronic cough, no chest pain or sputum production. No fever or chills. Patient was found to have pneumonia by chest x-ray showing bilateral. Hilar airspace disease concerning for pneumonia or edema. He remained afebrile without any sirs criteria. Respiratory status was stable and lungs are clear and diminished throughout with no wheezing, rales, rhonchi or respiratory distress. He remained afebrile and without leukocytosis. Blood cultures were negative as were Legionella and strep pneumo antigens. History with IV Rocephin and Zithromax. He recovered well and is back to baseline. He is not requiring supplemental oxygen. He will finish his course of Zithromax after discharge. He is stable and appropriate for discharge. Discharge discussed with: family - Time Spent with Patient Total time spent providing and/or coordinating discharge services: Less than 30 minutes - Discharge Medications Prescriptions: Azithromycin [Zithromax] 500 mg PO DAILY #4 tablet Home Medications: Cholecalciferol (Vitamin D3) [Vitamin D3] 2,000 unit PO DAILY 05/24/15 [History] Finasteride [Proscar] 5 mg PO DAILY 05/24/15 [History] Glimepiride [Amaryl] 4 mg PO DAILY 05/24/15 [History] Pravastatin Sodium 10 mg PO DAILY 05/24/15 [History] Sertraline [Zoloft] 50 mg PO DAILY 05/24/15 [History] Docusate [Colace] 100 mg PO BID #60 capsule 06/17/15 [Rx] Azelastine 0.1% Nasal [place] [Astelin] 1 spray NS BID 03/09/16 [History] Calcitriol [Rocaltrol] 0.5 mcg PO DAILY 03/09/16 [History] Clopidogrel [Plavix] 75 mg PO DAILY #30 tablet 03/12/16 [Rx] Gabapentin [Neurontin] 300 - 600 mg PO HS 04/25/16 [History] amLODIPine [Norvasc] 5 mg PO DAILY #30 tablet 05/07/16 [Rx] Acetaminophen [Tylenol] 500 mg PO Q6HR PRN 09/11/17 [History] Donepezil [Aricept] 5 mg PO HS 09/11/17 [History] SitaGLIPtin [Januvia] 25 mg PO DAILY 09/11/17 [History] Tamsulosin [Flomax] 0.4 mg PO DAILY 09/11/17 [History] Azithromycin [Zithromax] 500 mg PO DAILY #4 tablet 09/14/17 [Rx] Allergies/Adverse Reactions: 3 Allergy/AdvReac Type Severity Reaction Status Date / Time No Known Allergies Allergy Verified 09/10/17 18:58 Date of admission: 09/10/17 21:57 Primary care physician: Ashley Gerber[facility] Consults: 09/11/17 01:49 Consult to Diesel Motor Mechanic [CONS] Routine Reason for SW Consult: Pt states concern about caring for him at home alone. Discharging clinician: Brianda Calderon Anticipated date of discharge: 09/14/17 - Constitutional Vitals: Temp Pulse Resp BP Pulse Ox 97.7 F 61 16 149/77 96 09/14/17 11:59 09/14/17 11:59 09/14/17 11:59 09/14/17 11:59 09/14/17 11:59 General appearance: Present: A&O X 1, no acute distress, answers questions appropriately. Absent: cooperative, pleasant - Head Head exam: Present: atraumatic, normal inspection, normocephalic - Eye Eye exam: Present: normal appearance, conjuntiva pink, sclera anicteric - Neck Neck exam general surgery: Present: supple, trachea midline. Absent: lymphadenopathy, tenderness - Respiratory Respiratory exam: Present: CTAB. Absent: accessory muscle use, rales, respiratory distress, rhonchi, wheezes - Cardiovascular Cardiovascular exam: Present: RRR, +S1, +S2. Absent: diastolic murmur, gallop, rubs, systolic murmur - GI/Abdominal GI/Abdominal exam: Present: normal bowel sounds, soft. Absent: distended, hepatomegaly, tenderness - Extremities Exam Extremities exam: Present: normal capillary refill, normal inspection, warm, radial pulses palpable and symmetrical. Absent: calf tenderness, cyanotic, pedal edema - Neurological Exam Neurological exam: Present: alert, motor sensory deficit, oriented X3, no focal deficits. Absent: facial droop, speech deficit - Skin Skin exam: Present: dry, intact, normal color, warm. Absent: rash - Patient Status Disposition: Home, Self-Care Functional capacity at discharge: independent ambulation Overall status at discharge: patient is progressing back to baseline - Discharge Instructions Follow Up With: Ashley Dunlap MD [Primary Care Provider] - 09/22/17 11:30 am Additional Instructions: Please see your PCP in the next 5-7 days for a recheck. Return to the ER as needed for any other problems or concerns. Take your medications as directed, your new prescription is at your pharmacy. Return to your normal diet and activites as tolerated. - Diet and Activity Activity: increase activity as tolerated Diet: advance to your usual diet
--- NOTE | 2017-09-14 14:28 | Physician Discharge Referral ---
Home Health/Hosp Referral Info Transfer to: Home Health Provider in Charge Post Discharge: PCP - Diagnosis (1) Hypertension Priority: Secondary Status: Chronic (2) Type 2 diabetes mellitus Priority: Secondary Status: Chronic (3) Hyperkalemia Priority: Secondary Status: Resolved (4) CKD (chronic kidney disease) stage 3, GFR 30-59 ml/min Priority: Secondary Status: Chronic (5) Dementia Priority: Secondary Status: Chronic (6) Pneumonia Priority: Primary Status: Acute - Respiratory Orders Smoking Cessation: Smoking cessation has been advised. For more information, call the [place] Tobacco Quit Line at 3-272-CFCM-NOW. - Diet/Nutrition Diet/Nutrition Orders: Regular - Activity Activity Orders: Up ad britton - Services Needed Following services are medically necessary services: Nursing, Home Health Aide, Physical Therapy, Occupational Therapy - Transfer Medications Prescriptions: Azithromycin [Zithromax] 500 mg PO DAILY #4 tablet Home Medications: Cholecalciferol (Vitamin D3) [Vitamin D3] 2,000 unit PO DAILY 05/24/15 [History] Finasteride [Proscar] 5 mg PO DAILY 05/24/15 [History] Glimepiride [Amaryl] 4 mg PO DAILY 05/24/15 [History] Pravastatin Sodium 10 mg PO DAILY 05/24/15 [History] Sertraline [Zoloft] 50 mg PO DAILY 05/24/15 [History] Docusate [Colace] 100 mg PO BID #60 capsule 06/17/15 [Rx] Azelastine 0.1% Nasal [place] [Astelin] 1 spray NS BID 03/09/16 [History] Calcitriol [Rocaltrol] 0.5 mcg PO DAILY 03/09/16 [History] Clopidogrel [Plavix] 75 mg PO DAILY #30 tablet 03/12/16 [Rx] Gabapentin [Neurontin] 300 - 600 mg PO HS 04/25/16 [History] amLODIPine [Norvasc] 5 mg PO DAILY #30 tablet 05/07/16 [Rx] Acetaminophen [Tylenol] 500 mg PO Q6HR PRN 09/11/17 [History] Donepezil [Aricept] 5 mg PO HS 09/11/17 [History] SitaGLIPtin [Januvia] 25 mg PO DAILY 09/11/17 [History] Tamsulosin [Flomax] 0.4 mg PO DAILY 09/11/17 [History] Azithromycin [Zithromax] 500 mg PO DAILY #4 tablet 09/14/17 [Rx] Allergies/Adverse Reactions: 3 Allergy/AdvReac Type Severity Reaction Status Date / Time No Known Allergies Allergy Verified 09/10/17 18:58 Certification: Further, I certify that my clinical findings support that this patient is homebound (i.e. absences from home require considerable and taxing effort and are for medical reasons or voodoo services or infrequently or short duration when for other reasons) because: Homebound Reason: Patient requires assistance of a person or device to safely leave home, Leaving home requires considerable and taxing effort due to condition, Altered mental status requiring supervision when leaving home Attestation: My signature below is to certify that this patient is under my care and that I, or nurse practitioner, or a physician's administrative library assistant working with me, has a face-to -face encounter with this patient.
== END 2017-09-14 14:50 | disposition home or self-care (01) ==
LOC: 3BNU 18:55 → EMEROO 18:55 → 3BNU 23:20
PROVIDERS: ADMIT Internal Medicine; ATTEND Internal Medicine

== ENCOUNTER 2017-09-16 12:19 | Inpatient (IN) ==
[2017-09-16] MEDS ORDERED: Azithromycin 500 MG in D5% in Water 250 ML IVPB ONE (12:52)
[2017-09-16] MEDS ORDERED: cefTRIAXone 1,000 MG in Water for inj. (sterile) 20 ML 10 ML IVP ONE (12:52)
[2017-09-16] MEDS ORDERED: 0.9 % Sodium Chloride 500 ML IVC ONE (12:54)
--- NOTE | 2017-09-16 13:12 | Emergency Department Note ---
Disposition Clinical Impression: Chronic kidney disease (CKD) Qualifiers: Chronic kidney disease stage: unspecified stage Qualified Code(s): N18.9 - Chronic kidney disease, unspecified Dementia Qualifiers: Dementia type: unspecified type Dementia behavioral disturbance: without behavioral disturbance Qualified Code(s): F03.90 - Unspecified dementia without behavioral disturbance Community acquired pneumonia Qualifiers: Laterality: right Lung location: lower lobe of lung Qualified Code(s): J18.1 - Lobar pneumonia, unspecified organism UTI (urinary tract infection) Qualifiers: Urinary tract infection type: site unspecified Hematuria presence: without hematuria Qualified Code(s): N39.0 - Urinary tract infection, site not specified Disposition: Admitted As Inpatient Condition: Good Referrals: Ashley Dunlap MD [Primary Care Provider] - Forms: ED Satisfaction Letter Time of Disposition: 15:14 SOB HPI - General Chief Complaint: ED Shortness of Breath/Dyspnea Stated Complaint: ERICKA Time Seen by Provider: 09/16/17 12:41 Source: patient Limitations: no limitations Nursing Notes Reviewed: Yes Vital Signs Reviewed: Yes - History of Present Illness History is provided mainly by patient's . This is an 86 year-old male with history of HTN, HLD, poorly controlled type 2 diabetes, CKD stage 3, s/p pacer, and dementia. He was admitted 4-5 days ago with CAP, discharged 2 days ago on azithromycin. He presents with dyspnea, worsening for the past day, associated with productive cough, lethargy, and generalized weakness. He was sent to the ED from Dr. Castro's office, where he also reported a headache and seemed to be having trouble holding himself up. At the time of evaluation, patient is somnolent. He denies headache and chest pain. No recent fevers. Patient is a heavy smoker, but does not carry diagnosis of COPD and does not use home O2. Pt Subjective Complaint: shortness of breath Onset (ago): day(s) (2) Context: recent illness (recent admission for CAP) Severity: moderate Consistency/Duration: gradually worsening Improves with: nothing Worsens with: nothing Known history of: diabetes Associated symptoms: Reports: cough, sputum production. Denies: chest pain, fever, lower extremity pain, hemoptysis, abdominal pain Cough present: Yes Cough Frequency: Intermittent Sputum Amount: Small Sputum Color: Clear - Related Data Home oxygen amount: none Home Medications Medication Instructions Recorded Confirmed Cholecalciferol (Vitamin D3) 2,000 unit PO DAILY 05/24/15 09/16/17 [Vitamin D3] Finasteride [Proscar] 5 mg PO DAILY 05/24/15 09/16/17 Glimepiride [Amaryl] 4 mg PO DAILY 05/24/15 09/16/17 Pravastatin Sodium 10 mg PO DAILY 05/24/15 09/16/17 Sertraline [Zoloft] 50 mg PO DAILY 05/24/15 09/16/17 Azelastine 0.1% Nasal [place] 1 spray NS BID 03/09/16 09/16/17 [Astelin] Calcitriol [Rocaltrol] 0.5 mcg PO DAILY 03/09/16 09/16/17 Gabapentin [Neurontin] 300 - 600 mg PO HS 04/25/16 09/16/17 Acetaminophen [Tylenol] 500 mg PO Q6HR PRN 09/11/17 09/16/17 Donepezil [Aricept] 5 mg PO HS 09/11/17 09/16/17 SitaGLIPtin [Januvia] 25 mg PO DAILY 09/11/17 09/16/17 Tamsulosin [Flomax] 0.4 mg PO DAILY 09/11/17 09/16/17 Previous Rx's Medication Instructions Recorded Docusate [Colace] 100 mg PO BID #60 capsule 06/17/15 Clopidogrel [Plavix] 75 mg PO DAILY #30 tablet 03/12/16 amLODIPine [Norvasc] 5 mg PO DAILY #30 tablet 05/07/16 Azithromycin [Zithromax] 500 mg PO DAILY #4 tablet 09/14/17 Allergies Allergy/AdvReac Type Severity Reaction Status Date / Time No Known Allergies Allergy Verified 09/10/17 18:58 Limitations: ROS unobtainable due to patients medical condition Constitutional: Denies: fever Cardiovascular: Denies: chest pain Respiratory: Reports: cough, dyspnea, sputum production (white/clear) Gastrointestinal: Denies: abdominal pain, vomiting Neurological: Reports: headache (apparently resolved). Denies: weakness (none focal), numbness (none focal) Endocrine: Reports: fatigue Past Medical History - Past Medical History Medical history: Reports: CVA, dementia, diabetes, hyperlipidemia, hypertension , renal disease, other Surgical history: Reports: orthopedic, other Psychiatric history: Reports: no psych history - Social History Smoking Status: Heavy tobacco smoker Smokeless Tobacco Status: No Alcohol use: Reports: rarely Drug use: Reports: none Physical Exam - General Limitations: no limitations General appearance: alert, lethargic - Head Head exam: atraumatic, normocephalic - Eye Eye exam: Present: normal appearance, PERRL, EOMI, miosis ( says he's not on narcotic pain meds). Absent: scleral icterus - ENT ENT exam: mucous membranes dry - Neck Neck exam: Absent: meningismus - Respiratory Respiratory exam: Present: normal lung sounds bilaterally, other (frequent cough ). Absent: respiratory distress, wheezes - Cardiovascular Cardiovascular exam: Present: regular rate, normal rhythm, normal heart sounds - Abdominal Exam Abdominal exam: Present: soft, Non-Tender. Absent: distention - Extremities Exam Extremities exam: Present: normal inspection. Absent: pedal edema, calf tenderness - Neurological Exam Neurological exam: Present: other (somnolent, arouses to voice, answers simple questions appropriately). Absent: CN II-XII intact, motor sensory deficit - Skin Skin exam: Present: warm, dry, intact Course - Reevaluation(s) Reevaluation #1: Discussed test results with patient's . She is in agreement with admission. Time: 15:14 - Consultations Consultation #1: Reviewed case with Dr. Ramirez, and patient accepted for admission Time: 15:32 Vital Signs Temperature 97.9 F 09/16/17 12:25 Pulse Rate 59 09/16/17 12:25 Respiratory Rate 18 09/16/17 12:25 Blood Pressure 139/73 09/16/17 12:25 O2 Sat by Pulse Oximetry 93 09/16/17 12:25 Temperature 97.9 F 09/16/17 12:25 Pulse Rate 61 09/16/17 13:45 Respiratory Rate 16 09/16/17 13:45 Blood Pressure 147/71 09/16/17 13:45 O2 Sat by Pulse Oximetry 99 09/16/17 13:45 Oxygen Delivery Oxygen Delivery Nasal Cannula Shortness of Breath/Dyspnea - Lab Data Result diagrams: 09/16/17 12:30 09/16/17 12:30 Lab Results 09/16/17 09/16/17 09/16/17 Range/Units 12:30 12:30 12:30 WBC 11.1 (4.3-11.1) K/mcL RBC 5.10 (4.19-5.50) M/mcL Hgb 15.0 (12.9-16.9) g/dL Hct 45.7 (37.5-50.1) % MCV 89.6 (83.0-100.0) fL MCH 29.4 (28.0-33.3) pg MCHC 32.8 (31.6-35.5) g/dL RDW 14.6 H (11.5-14.5) % Plt Count 205 (140-400) K/mcL MPV 10.6 (9.4-12.4) fL Immature Gran % 0.5 (0-4) % Seg Neutrophils % 75.1 % Lymphocytes % 15.8 % Monocytes % 6.3 % Eosinophils % 1.7 % Basophils % 0.6 % Neutrophils # 8.3 (1.6-8.9) K/mcL Lymphocytes # 1.8 (0.6-4.6) K/mcL Monocytes # 0.7 (0.0-1.3) K/mcL Eosinophils # 0.2 (0.0-0.6) K/mcL Basophils # 0.1 (0.0-0.2) K/mcL ABG pH (7.32-7.45) pH Units ABG pCO2 (35-45) mmHg ABG pO2 (85-104) mmHg ABG HCO3 (21-27) mEq/L ABG Total CO2 (20-26) mEq/L ABG O2 Saturation (95-98) % ABG Base Excess (-2 to 3) mEq/L O2 Delivery Device Inspired O2 (1-15=lpm ld35-381=%) Sodium 137 (136-145) mEq/L Potassium 4.2 (3.5-5.1) mEq/L Chloride 108 H (98-107) mEq/L Carbon Dioxide 21 L (23-29) mEq/L BUN 43 H (8-23) mg/dL Creatinine 2.84 H (0.70-1.30) mg/dL Est GFR ( Amer) 26 L (> 60) Est GFR (Non-Af Amer) 21 L (> 60) BUN/Creatinine Ratio 15 (6-26) Glucose 298 H (70-105) mg/dL Calculated Osmolality 306 H (280-300) Lactic Acid (0.5-2.2) mmol/L Calcium 9.0 (8.6-10.3) mg/dL Total Bilirubin 0.3 (0.3-1.0) mg/dL Direct Bilirubin 0.1 (0.0-0.2) mg/dL Indirect Bilirubin 0.2 (0.0-1.2) mg/dL AST 13 (13-39) Units/L ALT 12 (7-52) Units/L Alkaline Phosphatase 68 (34-104) Units/L Troponin I < 0.03 (< 0.04) ng/mL B-Natriuretic Peptide 53 (Less than 100) pg/mL Serum Total Protein 6.6 (6.4-8.9) g/dL Albumin 3.9 (3.5-5.7) g/dL Globulin 2.7 (2.4-3.5) g/dL Albumin/Globulin Ratio 1.4 (1.1-2.2) Urine Color (Yellow) Urine Clarity (Clear) Urine pH (5.0-8.0) pH Units Ur Specific [place] (1.010-1.025) Urine Protein (Neg-Trace) mg/dL Urine Glucose (UA) (Normal) mg/dL Urine Ketones (Negative) mg/dL Urine Blood (Negative) Urine Nitrite (Negative) Urine Bilirubin (Negative) Urine Urobilinogen (Normal) mg/dL Ur Leukocyte Esterase (Negative) Urine Microscopic RBC (0-3) per hpf Urine Microscopic WBC (0-3) per hpf Ur Squamous Epith Cells (None-Few) per lpf Amorphous Sediment (Few) Urine Bacteria (None-Few) per hpf Ur Culture Indicated? (NO) 09/16/17 09/16/17 09/16/17 Range/Units 13:13 13:34 14:25 WBC (4.3-11.1) K/mcL RBC (4.19-5.50) M/mcL Hgb (12.9-16.9) g/dL Hct (37.5-50.1) % MCV (83.0-100.0) fL MCH (28.0-33.3) pg MCHC (31.6-35.5) g/dL RDW (11.5-14.5) % Plt Count (140-400) K/mcL MPV (9.4-12.4) fL Immature Gran % (0-4) % Seg Neutrophils % % Lymphocytes % % Monocytes % % Eosinophils % % Basophils % % Neutrophils # (1.6-8.9) K/mcL Lymphocytes # (0.6-4.6) K/mcL Monocytes # (0.0-1.3) K/mcL Eosinophils # (0.0-0.6) K/mcL Basophils # (0.0-0.2) K/mcL ABG pH 7.33 (7.32-7.45) pH Units ABG pCO2 37 (35-45) mmHg ABG pO2 85 (85-104) mmHg ABG HCO3 20 L (21-27) mEq/L ABG Total CO2 21 (20-26) mEq/L ABG O2 Saturation 96 (95-98) % ABG Base Excess -6 L (-2 to 3) mEq/L O2 Delivery Device Cannula Inspired O2 3.0 (1-15=lpm ud51-645=%) Sodium (136-145) mEq/L Potassium (3.5-5.1) mEq/L Chloride (98-107) mEq/L Carbon Dioxide (23-29) mEq/L BUN (8-23) mg/dL Creatinine (0.70-1.30) mg/dL Est GFR ( Amer) (> 60) Est GFR (Non-Af Amer) (> 60) BUN/Creatinine Ratio (6-26) Glucose (70-105) mg/dL Calculated Osmolality (280-300) Lactic Acid 1.2 (0.5-2.2) mmol/L Calcium (8.6-10.3) mg/dL Total Bilirubin (0.3-1.0) mg/dL Direct Bilirubin (0.0-0.2) mg/dL Indirect Bilirubin (0.0-1.2) mg/dL AST (13-39) Units/L ALT (7-52) Units/L Alkaline Phosphatase (34-104) Units/L Troponin I (< 0.04) ng/mL B-Natriuretic Peptide (Less than 100) pg/mL Serum Total Protein (6.4-8.9) g/dL Albumin (3.5-5.7) g/dL Globulin (2.4-3.5) g/dL Albumin/Globulin Ratio (1.1-2.2) Urine Color Yellow (Yellow) Urine Clarity Clear (Clear) Urine pH 5.5 (5.0-8.0) pH Units Ur Specific [place] 1.020 (1.010-1.025) Urine Protein 100 H (Neg-Trace) mg/dL Urine Glucose (UA) 250 H (Normal) mg/dL Urine Ketones Negative (Negative) mg/dL Urine Blood Negative (Negative) Urine Nitrite Negative (Negative) Urine Bilirubin Negative (Negative) Urine Urobilinogen Normal (Normal) mg/dL Ur Leukocyte Esterase Negative (Negative) Urine Microscopic RBC 0-3 (0-3) per hpf Urine Microscopic WBC 5-15 H (0-3) per hpf Ur Squamous Epith Cells Many H (None-Few) per lpf Amorphous Sediment Many H (Few) Urine Bacteria Moderate H (None-Few) per hpf Ur Culture Indicated? NO (NO) - Radiology Data Radiology results reviewed: Yes I reviewed the patient's radiology results. XR/XR chest 1V portable IMPRESSION: Chronic interstitial changes. Increased lung changes in the right lung base which are concerning for a superimposed infiltrate. Follow up to resolution is suggested. CT/CT head/brain wo con IMPRESSION: No acute intracranial abnormality. Cerebral atrophy. Mild chronic small vessel ischemic disease. Remote lacunar infarct in the left basal ganglia. - EKG Data EKG attestation: Yes I reviewed and interpreted this EKG. EKG results narrative: Atrial paced at 61 Interpretation: Reports: unchanged when compared to prior tracing (date) (09/10/17 )
[2017-09-16 13:15] LABS: Basophils # 0.1 K/mcL (0.0-0.2); Basophils % 0.6 %; Eosinophils # 0.2 K/mcL (0.0-0.6); Eosinophils % 1.7 %; Hematocrit 45.7 % (37.5-50.1); Immature Granulocytes % 0.5 % (0-4); Lymphocytes # 1.8 K/mcL (0.6-4.6); Lymphocytes % 15.8 %; Mean Corpuscular HGB Conc 32.8 g/dL (31.6-35.5); Mean Corpuscular Hemoglobin 29.4 pg (28.0-33.3); Mean Corpuscular Volume 89.6 fL (83.0-100.0); Mean Platelet Volume 10.6 fL (9.4-12.4); Monocytes # 0.7 K/mcL (0.0-1.3); Monocytes % 6.3 %; Neutrophils # 8.3 K/mcL (1.6-8.9); Platelet Count 205 K/mcL (140-400); Red Cell Distribution Width 14.6 % (11.5-14.5); Segmented Neutrophils % 75.1 %
[2017-09-16 13:39] LABS: Troponin I < 0.03 ng/mL (< 0.04)
[2017-09-16 13:40] LABS: Alanine Aminotransferase 12 Units/L (7-52); Albumin 3.9 g/dL (3.5-5.7); Albumin/Globulin Ratio 1.4 (1.1-2.2); Alkaline Phosphatase 68 Units/L (34-104); Aspartate Amino Transferase 13 Units/L (13-39); BUN/Creatinine Ratio 15 (6-26); Bilirubin,Direct 0.1 mg/dL (0.0-0.2); Bilirubin,Indirect 0.2 mg/dL (0.0-1.2); Bilirubin,Total 0.3 mg/dL (0.3-1.0); Blood Urea Nitrogen 43 mg/dL (8-23); Carbon Dioxide 21 mEq/L (23-29); Chloride 108 mEq/L (98-107); Globulin 2.7 g/dL (2.4-3.5); Glucose 298 mg/dL (70-105); Osmolality,Calculated 306 (280-300); Potassium 4.2 mEq/L (3.5-5.1); Sodium 137 mEq/L (136-145); Total Protein 6.6 g/dL (6.4-8.9); eGFR For African Americans 26 (> 60); eGFR For Non-African Americans 21 (> 60)
[2017-09-16 13:43] LABS: Bilirubin,Urine Negative (Negative); Blood,Urine Negative (Negative); Clarity,Urine Clear (Clear); Color,Urine Yellow (Yellow); Glucose,Urine (UA) 250 mg/dL (Normal); Ketones,Urine Negative (Negative); Leukocyte Esterase,Urine Negative (Negative); Nitrite,Urine Negative (Negative); PH,Urine 5.5 pH Units (5.0-8.0); Protein,Urine 100 mg/dL (Neg-Trace); Urobilinogen,Urine Normal (Normal)
[2017-09-16 13:58] LABS: Amorphous Sediment,Urine Many (Few); Squamous Epithelial Cell,Urine Many per lpf (None-Few)
[2017-09-16 13:59] LABS: Bacteria,Urine Moderate per hpf (None-Few); RBC,Urine 0-3 per hpf (0-3)
[2017-09-16 14:30] LABS: ABG Base Excess -6 mEq/L (-2 to 3); ABG HCO3 20 mEq/L (21-27); ABG Oxygen Saturation 96 % (95-98); ABG PCO2 37 mmHg (35-45); ABG PH 7.33 pH Units (7.32-7.45); ABG PO2 85 mmHg (85-104); ABG TCO2 21 mEq/L (20-26)
--- NOTE | 2017-09-16 18:12 | Electrocardiograph Report ---
[place] [id number] Test Date: 2017-09-16 Pat Name: Ari Soria Department: 103 Room: 3B12 Gender: M Channel Executive: : 1930 Requested By: Robert Carroll Order Number: [id number] Reading MD: Arias Skelton Measurements Intervals [place] Rate: 61 P: 69 NM: 208 QRS: -31 QRSD: 98 T: 35 QT: 390 QTc: 394 Interpretive Statements ELECTRONIC ATRIAL PACEMAKER MARKED LEFT AXIS DEVIATION INCOMPLETE RIGHT BUNDLE BRANCH BLOCK Electronically Signed On 09-16-2017 18:11:00 EDT by Arias Skelton
--- NOTE | 2017-09-16 19:27 | Internal Med History&Physical ---
Date of Encounter: 09/16/17 Time of Encounter: 19:22 Internal Medicine - H&P: HPI Admitted From: Emergency Dept Plans for Post Hospital Care: Home History of present illness: Mr. Soria is a 86 year old male HTN, HLD, poorly controlled type 2 DM, CVA, CKD stage 3, s/p pacer, and dementia. Pt states he had been progressively SB. He unaware of hx of COPD and he is still a current smoker. He states he is not on home oxygen. Denies hx of heart failure. He denies cough/fever/chills/ N/V/Diarrhea. Denies CP. Denies LE or orthopnea. Pt was apparently admitted four days ago and discharged 2 days ago on Zithromax and Rocephin. Pt had reported to Ed that he had been weak and having productive cough. He was sent to the ED from Dr. Castro's office, where he also reported a headache and seemed to be having trouble holding himself up. He was reported to e somnolent in the ED but that has since resolved and he is more alert during my eval. CODE STATUS: FULL In ED WBC 11.1, hgb 15.0, hct 45.7, plt 205. Na 137, K 4.2, BUN 43, Creatinine 2.84, glucose 298. ABG pH 7.33, pCO2 37, pO2 85, HCO3 20. Non-contrast head CT IMPRESSION: No acute intracranial abnormality. Cerebral atrophy. Mild chronic small vessel ischemic disease. Remote lacunar infarct in the left basal ganglia. Chest x ray IMPRESSION: Chronic interstitial lung disease. Increased lung changes in the right lung base which are concerning for a superimposed infiltrate. Follow up to resolution is suggested. Past Med Surg Social Fam HX - Past Medical History Medical history: CVA, dementia, diabetes, hyperlipidemia, hypertension, renal disease, other Additional medical history: CVA - 2016 -. Stage IV Renal Failure Psychiatric history: no psych history - Past Surgical History Surgical History: orthopedic, other Additional surgical history: neck surgery - Social History Smoking Status: Heavy tobacco smoker Smokeless Tobacco Status: No Alcohol use: rarely Drug use: none - Family History Sister Living Status: Hx Family Cardiac Disorders: No Hx Family Respiratory Disorders: No Hx Family Cancer: Yes Hx Family GI Disorders: No Hx Family Endocrine Disorder: No Hx Family Neuromuscular Disorders: No Hx Family Neurologic Disorders: No Hx Family HEENT Disorders: No Hx Family Autoimmune Disorders: No Brother Living Status: Still Living Hx Family Cardiac Disorders: Yes Hx Family Respiratory Disorders: No Hx Family Cancer: No Hx Family GI Disorders: No Hx Family Endocrine Disorder: Yes (diabetes) Hx Family Neuromuscular Disorders: No Hx Family Neurologic Disorders: No Hx Family HEENT Disorders: No Hx Family Autoimmune Disorders: No Father Living Status: Mother Adopted: No Family Member Ethnicity: Non- Living Status: Hx Family Cardiac Disorders: Yes (CHF) Hx Family Respiratory Disorders: No Hx Family Cancer: No Hx Family GI Disorders: No Hx Family Endocrine Disorder: No Hx Family Neuromuscular Disorders: No Hx Family Neurologic Disorders: No Hx Family HEENT Disorders: No Hx Family Autoimmune Disorders: No Internal Medicine - H&P: Meds Cholecalciferol (Vitamin D3) [Vitamin D3] 2,000 unit PO DAILY 05/24/15 [History] Finasteride [Proscar] 5 mg PO DAILY 05/24/15 [History] Glimepiride [Amaryl] 4 mg PO DAILY 05/24/15 [History] Pravastatin Sodium 10 mg PO DAILY 05/24/15 [History] Sertraline [Zoloft] 50 mg PO DAILY 05/24/15 [History] Docusate [Colace] 100 mg PO BID #60 capsule 06/17/15 [Rx] Azelastine 0.1% Nasal [place] [Astelin] 1 spray NS BID 03/09/16 [History] Calcitriol [Rocaltrol] 0.5 mcg PO DAILY 03/09/16 [History] Clopidogrel [Plavix] 75 mg PO DAILY #30 tablet 03/12/16 [Rx] Gabapentin [Neurontin] 300 - 600 mg PO HS 04/25/16 [History] amLODIPine [Norvasc] 5 mg PO DAILY #30 tablet 05/07/16 [Rx] Acetaminophen [Tylenol] 500 mg PO Q6HR PRN 09/11/17 [History] Donepezil [Aricept] 5 mg PO HS 09/11/17 [History] SitaGLIPtin [Januvia] 25 mg PO DAILY 09/11/17 [History] Tamsulosin [Flomax] 0.4 mg PO DAILY 09/11/17 [History] Azithromycin [Zithromax] 500 mg PO DAILY #4 tablet 09/14/17 [Rx] 3 Allergy/AdvReac Type Severity Reaction Status Date / Time No Known Allergies Allergy Verified 09/10/17 18:58 All Systems PM: A 10-system review of systems was performed and is negative for pertinent findings except as documented above in the HPI. - Constitutional Vitals: Temp Pulse Resp BP Pulse Ox 97.8 F 70 16 136/75 96 09/16/17 18:16 09/16/17 18:16 09/16/17 18:16 09/16/17 18:16 09/16/17 18:16 General appearance: Present: A&O X 3, pleasant, no acute distress - Head Head exam: Present: atraumatic, normocephalic - Eye Eye exam: Present: PERRL, conjuntiva pink, sclera anicteric Pupils: Present: PERRL - Neck Neck exam general surgery: Present: supple, trachea midline. Absent: lymphadenopathy - Respiratory Respiratory exam: Present: CTAB. Absent: accessory muscle use, rales, rhonchi, wheezes - Cardiovascular Cardiovascular exam: Present: RRR, +S1, +S2. Absent: diastolic murmur, gallop, rubs, systolic murmur - GI/Abdominal GI/Abdominal exam: Present: normal bowel sounds, soft, no peritoneal signs. Absent: distended, tenderness - Extremities Exam Extremities exam: Present: warm, radial pulses palpable and symmetrical. Absent : calf tenderness, cyanotic, pedal edema - Neurological Exam Neurological exam: Present: CN II-XII intact, oriented X3, no focal deficits. Absent: pronater drift, facial droop, speech deficit - Skin Skin exam: Present: dry, intact Internal Med - H&P Results - Labs CBC & Chem 7: 09/16/17 12:30 09/16/17 12:30 - Assessment and plan (1) Hospital-acquired pneumonia Current Visit: Yes Status: Acute Assessment and plan: Will place on Vancomycin, Zosyn, and Levaquin. Pt states he has not been coughing. Will order sputum in case pt is able to give a sample. Based on CXR readding, unclear if this a new infiltrate or improving pna. Also included in differential is possible aspiration. Will order swallow eval as pt has hx of CVA. (2) Acute exacerbation of chronic obstructive pulmonary disease (COPD) Current Visit: Yes Status: Acute Assessment and plan: Will place on luís nebs Q 4 and prn. Will give steroid IV with plans to DC on PO taper. Pt will likely benefit from pulmonary function study following his discharge. (3) Hypertension Current Visit: No Status: Chronic Assessment and plan: [place] Qualifiers: Hypertension type: essential hypertension Qualified Code(s): I10 - Essential (primary) hypertension (4) Type 2 diabetes mellitus Current Visit: No Status: Chronic Assessment and plan: Amaryl. Will monitor glucose and add SSI due to steroid therapy Qualifiers: Diabetes mellitus senior living insulin use: without senior living use Diabetes mellitus complication status: with kidney complications Diabetes mellitus complication detail: with chronic kidney disease Chronic kidney disease stage : stage 3 (moderate) Qualified Code(s): E11.22 - Type 2 diabetes mellitus with diabetic chronic kidney disease; N18.3 - Chronic kidney disease, stage 3 ( moderate) (5) Chronic kidney disease (CKD) Current Visit: Yes Status: Chronic Assessment and plan: Will give IVF and monitor renal function. Baseline Cr unknown Qualifiers: Chronic kidney disease stage: unspecified stage Qualified Code(s): N18.9 - Chronic kidney disease, unspecified (6) Healthcare-associated pneumonia Current Visit: Yes Status: Acute - Time Spent With Patient Total time spent is greater than 50% in coordination of care (as documented) at patient's floor/unit and/or counseling patient: 25 - 35 minutes
[2017-09-16] MEDS ORDERED: Acetaminophen 325 MG TABLET PO PRN (20:28)
[2017-09-16] MEDS ORDERED: Vancomycin (wt based) 1,000 MG VIAL IVPB SCH (21:00)
[2017-09-16] MEDS: Azelastine 0.1% Nasal Spray 30 ML BOTTLE NS SCH (23:04)
[2017-09-17] MEDS: Ipratropium/Albuterol Neb 3 ML IH SCH ×5 (00:02→23:07)
[2017-09-17] MEDS: MethylPREDNISolone 40 MG/ML VIAL IVP SCH ×5 (01:26→23:02)
[2017-09-17] MEDS: Piperacillin/Tazobactam 3.375 GM in 0.9 % Sodium Chloride Mini Bag 100 ML IVPB SCH ×3 (01:27→23:06)
[2017-09-17 05:33] LABS: Basophils # 0.1 K/mcL (0.0-0.2); Basophils % 0.5 %; Eosinophils # 0.1 K/mcL (0.0-0.6); Eosinophils % 0.4 %; Hematocrit 43.2 % (37.5-50.1); Hemoglobin 14.2 g/dL (12.9-16.9); Immature Granulocytes % 0.4 % (0-4); Lymphocytes # 0.8 K/mcL (0.6-4.6); Lymphocytes % 6.9 %; Mean Corpuscular HGB Conc 32.9 g/dL (31.6-35.5); Mean Corpuscular Hemoglobin 29.1 pg (28.0-33.3); Mean Corpuscular Volume 88.5 fL (83.0-100.0); Mean Platelet Volume 10.6 fL (9.4-12.4); Monocytes # 0.1 K/mcL (0.0-1.3); Neutrophils # 10.2 K/mcL (1.6-8.9); Platelet Count 191 K/mcL (140-400); Red Blood Count 4.88 M/mcL (4.19-5.50); Red Cell Distribution Width 14.6 % (11.5-14.5); Segmented Neutrophils % 90.8 %
[2017-09-17 05:56] LABS: Calcium 8.6 mg/dL (8.6-10.3); Potassium 4.3 mEq/L (3.5-5.1)
[2017-09-17] MEDS: Azelastine 0.1% Nasal Spray 30 ML BOTTLE NS SCH ×2 (08:09→20:12)
[2017-09-17] MEDS: Finasteride 5 MG TABLET PO SCH (08:10)
[2017-09-17] MEDS: *HR* Glimepiride 4 MG TABLET PO SCH (08:10)
[2017-09-17] MEDS: amLODIPine 5 MG TABLET PO SCH (08:10)
[2017-09-17] MEDS: Nicotine 14 MG PATCH.TD24 TD SCH (08:11)
[2017-09-17 08:49] LABS: Influenza A PCR Negative (Negative); Influenza B PCR Negative (Negative)
[2017-09-17] MEDS ORDERED: *HR* SitaGLIPtin 25 MG TABLET PO SCH (09:00)
[2017-09-17] MEDS ORDERED: levoFLOXacin 500 MG TABLET PO SCH (09:00)
--- NOTE | 2017-09-17 10:02 | Internal Med Progress Note ---
Date of Encounter: 09/17/17 Time of Encounter: 10:02 - Assessment and plan (1) Acute exacerbation of chronic obstructive pulmonary disease (COPD) Current Visit: Yes Status: Acute Assessment and plan: 1 no wheezes at this time we will continue with bronchodilators as well as steroids and taper to oral He has never been diagnosed with COPD he will benefit from pulmonary function tests as outpatient Current smoker encouraged patient stop smoking (2) Hospital-acquired pneumonia Current Visit: Yes Status: Acute Assessment and plan: Patient was recently discharged from hospital after being treated for pneumonia patient is a current smoker He had been discharged from the hospital on azithromycin.-Initiated on vancomycin and Zosyn and Levaquin which we will continue sputum culture has been ordered CXR readding, unclear if this a new infiltrate or improving pna. Also included in differential is possible aspiration. Will order swallow eval as pt has hx of CVA. (3) CKD (chronic kidney disease) stage 3, GFR 30-59 ml/min Current Visit: No Status: Chronic (4) Diabetes Current Visit: No Status: Acute Assessment and plan: 1 Accu-Cheks before meals at bedtime with sliding scale insulin will hold Januvia for now Qualifiers: Diabetes mellitus type: type 2 Diabetes mellitus jail insulin use: without jail use Diabetes mellitus complication status: with kidney complications Diabetes mellitus complication detail: with chronic kidney disease Chronic kidney disease stage: stage 3 (moderate) Qualified Code(s): E11.22 - Type 2 diabetes mellitus with diabetic chronic kidney disease; N18.3 - Chronic kidney disease, stage 3 (moderate) (5) DVT prophylaxis Current Visit: No Status: Acute Assessment and plan: Heparin subcutaneous - Time Spent With Patient Total time spent is greater than 50% in coordination of care (as documented) at patient's floor/unit and/or counseling patient: - Subjective Interval history: Patient seen and exam at bedside, Denies any cough fever or SOB at this time. Requesting to go home, advised to stay and continue treatment. Reviewed treatment plan with patient he agree to plan - Constitutional Vitals: Temp Pulse Resp BP Pulse Ox 97.5 F L 84 17 129/68 95 09/17/17 07:23 09/17/17 07:23 09/17/17 07:23 09/17/17 07:23 09/17/17 07:23 General appearance: Present: A&O X 3, pleasant, no acute distress - Head Head exam: Present: atraumatic, normocephalic - Eye Eye exam: Present: PERRL, conjuntiva pink, sclera anicteric Pupils: Present: PERRL - Neck Neck exam general surgery: Present: supple, trachea midline. Absent: lymphadenopathy - Respiratory Respiratory exam: Present: decreased breath sounds, CTAB. Absent: accessory muscle use, rales, rhonchi, wheezes - Cardiovascular Cardiovascular exam: Present: RRR, +S1, +S2. Absent: diastolic murmur, gallop, rubs, systolic murmur - GI/Abdominal GI/Abdominal exam: Present: normal bowel sounds, soft, no peritoneal signs. Absent: distended, tenderness - Extremities Exam Extremities exam: Present: warm, radial pulses palpable and symmetrical. Absent : calf tenderness, cyanotic, pedal edema - Neurological Exam Neurological exam: Present: CN II-XII intact, oriented X3, no focal deficits. Absent: pronater drift, facial droop, speech deficit - Skin Skin exam: Present: dry, intact Internal Medicine: Result - Labs CBC & Chem 7: 09/17/17 04:34 09/17/17 04:34 Labs: Short CBC 09/17/17 Range/Units 04:34 WBC 11.2 H (4.3-11.1) K/mcL Hgb 14.2 (12.9-16.9) g/dL Hct 43.2 (37.5-50.1) % Plt Count 191 (140-400) K/mcL Neutrophils # 10.2 H (1.6-8.9) K/mcL BMP 09/17/17 04:34 Sodium 138 Potassium 4.3 Chloride 114 H Carbon Dioxide 17 L BUN 37 H Creatinine 2.58 H Glucose 174 H Calcium 8.6 - ABG Interpretation ABG results: ABG ABG pH 7.33 pH Units (7.32-7.45) 09/16/17 14:25 ABG pCO2 37 mmHg (35-45) 09/16/17 14:25 ABG pO2 85 mmHg (85-104) 09/16/17 14:25 ABG O2 Saturation 96 % (95-98) 09/16/17 14:25 Consult Discharge Plan - Plan Referrals: Ashley Dunlap MD [Primary Care Provider] -
[2017-09-17] MEDS ORDERED: Dextrose Gel 15 GM/37.5 ML TUBE PO PRN ×2 (14:41)
[2017-09-17] MEDS ORDERED: *HR* Dextrose 50 % in Water (Syg) 50 ML SYRINGE IVP PRN (14:41)
[2017-09-17] MEDS ORDERED: D5% in Water 1,000 ML IVC PRN (14:41)
[2017-09-17] MEDS: *HR* Heparin 5,000 UNIT/ML VIAL SQ SCH (17:05)
[2017-09-17] MEDS: Insulin LISPRO 300 UNITS/3 ML VIAL SQ SCH ×2 (17:05→20:10)
[2017-09-18 04:38] LABS: Calcium 8.6 mg/dL (8.6-10.3); Potassium 5.1 mEq/L (3.5-5.1)
[2017-09-18] MEDS: *HR* Heparin 5,000 UNIT/ML VIAL SQ SCH ×2 (04:53→17:07)
[2017-09-18] MEDS: MethylPREDNISolone 40 MG/ML VIAL IVP SCH ×2 (05:01→17:07)
[2017-09-18] MEDS: Ipratropium/Albuterol Neb 3 ML IH SCH ×4 (05:40→23:37)
[2017-09-18] MEDS ORDERED: 0.9 % Sodium Chloride 1,000 ML IVC SCH (07:30)
[2017-09-18] MEDS: *HR* Glimepiride 4 MG TABLET PO SCH (08:32)
[2017-09-18] MEDS: amLODIPine 5 MG TABLET PO SCH (08:32)
[2017-09-18] MEDS: Finasteride 5 MG TABLET PO SCH (08:32)
[2017-09-18] MEDS: Azelastine 0.1% Nasal Spray 30 ML BOTTLE NS SCH ×2 (08:35→20:24)
[2017-09-18] MEDS: Insulin LISPRO 300 UNITS/3 ML VIAL SQ SCH ×4 (08:36→20:25)
[2017-09-18] MEDS: Nicotine 14 MG PATCH.TD24 TD SCH (08:36)
[2017-09-18] MEDS ORDERED: levoFLOXacin 500 MG TABLET PO SCH (09:00)
[2017-09-18] MEDS: Piperacillin/Tazobactam 3.375 GM in 0.9 % Sodium Chloride Mini Bag 100 ML IVPB SCH ×2 (12:03→23:51)
--- NOTE | 2017-09-18 14:53 | Internal Med Progress Note ---
Date of Encounter: 09/18/17 Time of Encounter: 14:49 - Assessment and plan (1) Acute exacerbation of chronic obstructive pulmonary disease (COPD) Current Visit: Yes Status: Acute Assessment and plan: 1 no wheezes at this time we will continue with bronchodilators as well as steroids and taper to oral He has never been diagnosed with COPD he will benefit from pulmonary function tests as outpatient Current smoker encouraged patient stop smoking (2) Hospital-acquired pneumonia Current Visit: Yes Status: Acute Assessment and plan: Patient was recently discharged from hospital after being treated for pneumonia patient is a current smoker He had been discharged from the hospital on azithromycin.-Initiated on vancomycin and Zosyn and Levaquin -the preliminary cultures are negative culture has been ordered CXR readding, unclear if this a new infiltrate or improving pna.-Could possibly be aspiration-bedside swallow We will consult psychosocial rehabilitation counselor for discharge planning (3) CKD (chronic kidney disease) stage 3, GFR 30-59 ml/min Current Visit: No Status: Chronic (4) Diabetes Current Visit: No Status: Acute Assessment and plan: 1 Accu-Cheks before meals at bedtime with sliding scale insulin will hold Januvia for now Qualifiers: Diabetes mellitus type: type 2 Diabetes mellitus usp insulin use: without usp use Diabetes mellitus complication status: with kidney complications Diabetes mellitus complication detail: with chronic kidney disease Chronic kidney disease stage: stage 3 (moderate) Qualified Code(s): E11.22 - Type 2 diabetes mellitus with diabetic chronic kidney disease; N18.3 - Chronic kidney disease, stage 3 (moderate) (5) DVT prophylaxis Current Visit: No Status: Acute Assessment and plan: Heparin subcutaneous - Time Spent With Patient Total time spent is greater than 50% in coordination of care (as documented) at patient's floor/unit and/or counseling patient: - Subjective Interval history: Patient seen and exam at bedside, patient does have a moist nonproductive cough no fevers no shortness of breath at this time. Patient is sleeping patient's is at bedside she voices concerns about patient's ability to ambulate and perform ADLs. She states he is very weak and she has been unable to provide care to him. We will consult psychosocial rehabilitation counselor for discharge planning I did review treatment plan with the who verbalized understanding - Constitutional Vitals: Temp Pulse Resp BP Pulse Ox 97.6 F 64 17 115/57 97 09/18/17 12:01 09/18/17 12:01 09/18/17 12:01 09/18/17 12:01 09/18/17 12:01 General appearance: Present: A&O X 3, pleasant, no acute distress - Head Head exam: Present: atraumatic, normocephalic - Eye Eye exam: Present: PERRL, conjuntiva pink, sclera anicteric Pupils: Present: PERRL - Neck Neck exam general surgery: Present: supple, trachea midline. Absent: lymphadenopathy - Respiratory Respiratory exam: Present: rales. Absent: accessory muscle use, rhonchi, wheezes - Cardiovascular Cardiovascular exam: Present: RRR, +S1, +S2. Absent: diastolic murmur, gallop, rubs, systolic murmur - GI/Abdominal GI/Abdominal exam: Present: normal bowel sounds, soft, no peritoneal signs. Absent: distended, tenderness - Extremities Exam Extremities exam: Present: warm, radial pulses palpable and symmetrical. Absent : calf tenderness, cyanotic, pedal edema - Neurological Exam Neurological exam: Present: CN II-XII intact, oriented X3, no focal deficits. Absent: pronater drift, facial droop, speech deficit - Skin Skin exam: Present: dry, intact Internal Medicine: Result - Labs CBC & Chem 7: 09/17/17 04:34 09/18/17 03:48 Labs: BMP 09/18/17 03:48 Sodium 135 L Potassium 5.1 Chloride 113 H Carbon Dioxide 15 L BUN 51 H Creatinine 2.72 H Glucose 271 H Calcium 8.6 - ABG Interpretation ABG results: ABG ABG pH 7.33 pH Units (7.32-7.45) 09/16/17 14:25 ABG pCO2 37 mmHg (35-45) 09/16/17 14:25 ABG pO2 85 mmHg (85-104) 09/16/17 14:25 ABG O2 Saturation 96 % (95-98) 09/16/17 14:25 Consult Discharge Plan - Plan Referrals: Ashley Dunlap MD [Primary Care Provider] -
[2017-09-19] MEDS: Ipratropium/Albuterol Neb 3 ML IH SCH ×2 (04:39→10:36)
[2017-09-19 04:46] LABS: Hematocrit 40.8 % (37.5-50.1); Hemoglobin 13.3 g/dL (12.9-16.9); Lymphocytes # 1.4 K/mcL (0.6-4.6); Lymphocytes % 6.2 %; Mean Corpuscular HGB Conc 32.6 g/dL (31.6-35.5); Mean Corpuscular Hemoglobin 29.2 pg (28.0-33.3); Mean Corpuscular Volume 89.7 fL (83.0-100.0); Mean Platelet Volume 10.7 fL (9.4-12.4); Monocytes % 4.5 %; Neutrophils # 19.4 K/mcL (1.6-8.9); Platelet Count 199 K/mcL (140-400); Red Blood Count 4.55 M/mcL (4.19-5.50); Red Cell Distribution Width 14.9 % (11.5-14.5); Segmented Neutrophils % 88.3 %
[2017-09-19 05:12] LABS: Calcium 8.7 mg/dL (8.6-10.3); Potassium 4.7 mEq/L (3.5-5.1)
[2017-09-19] MEDS: MethylPREDNISolone 40 MG/ML VIAL IVP SCH (05:19)
[2017-09-19] MEDS: *HR* Heparin 5,000 UNIT/ML VIAL SQ SCH (05:19)
[2017-09-19] MEDS ORDERED: 0.9 % Sodium Chloride 1,000 ML IVC SCH (08:00)
[2017-09-19] MEDS: Insulin LISPRO 300 UNITS/3 ML VIAL SQ SCH (08:24)
[2017-09-19] MEDS: Finasteride 5 MG TABLET PO SCH (08:59)
[2017-09-19] MEDS: amLODIPine 5 MG TABLET PO SCH (08:59)
[2017-09-19] MEDS: Nicotine 14 MG PATCH.TD24 TD SCH (09:00)
[2017-09-19] MEDS: Azelastine 0.1% Nasal Spray 30 ML BOTTLE NS SCH (09:01)
--- NOTE | 2017-09-19 10:01 | Internal Med Progress Note ---
Date of Encounter: 09/19/17 Time of Encounter: 10:00 - Assessment and plan (1) Acute exacerbation of chronic obstructive pulmonary disease (COPD) Current Visit: Yes Status: Acute (2) Hospital-acquired pneumonia Current Visit: Yes Status: Acute (3) CKD (chronic kidney disease) stage 3, GFR 30-59 ml/min Current Visit: No Status: Chronic (4) Diabetes Current Visit: No Status: Acute Qualifiers: Diabetes mellitus type: type 2 Diabetes mellitus terminologist insulin use: without terminologist use Diabetes mellitus complication status: with kidney complications Diabetes mellitus complication detail: with chronic kidney disease Chronic kidney disease stage: stage 3 (moderate) Qualified Code(s): E11.22 - Type 2 diabetes mellitus with diabetic chronic kidney disease; N18.3 - Chronic kidney disease, stage 3 (moderate) (5) DVT prophylaxis Current Visit: No Status: Acute - Time Spent With Patient Total time spent is greater than 50% in coordination of care (as documented) at patient's floor/unit and/or counseling patient: - Subjective Interval history: Patient seen and exam at bedside, patient does have a moist nonproductive cough no fevers no shortness of breath at this time. Patient is sleeping patient's is at bedside she voices concerns about patient's ability to ambulate and perform ADLs. She states he is very weak and she has been unable to provide care to him. We will consult social media analyst for discharge planning I did review treatment plan with the who verbalized understanding - Constitutional Vitals: Temp Pulse Resp BP Pulse Ox 98.2 F 78 16 146/68 92 09/19/17 07:12 09/19/17 07:12 09/19/17 07:12 09/19/17 07:12 09/19/17 07:12 General appearance: Present: A&O X 3, pleasant, no acute distress Internal Medicine: Result - Labs CBC & Chem 7: 09/19/17 04:10 09/19/17 04:10 Labs: Short CBC 09/19/17 Range/Units 04:10 WBC 22.0 H D (4.3-11.1) K/mcL Hgb 13.3 (12.9-16.9) g/dL Hct 40.8 (37.5-50.1) % Plt Count 199 (140-400) K/mcL Neutrophils # 19.4 H (1.6-8.9) K/mcL BMP 09/19/17 04:10 Sodium 139 Potassium 4.7 Chloride 116 H Carbon Dioxide 16 L BUN 50 H Creatinine 2.66 H Glucose 208 H Calcium 8.7 - ABG Interpretation ABG results: ABG ABG pH 7.33 pH Units (7.32-7.45) 09/16/17 14:25 ABG pCO2 37 mmHg (35-45) 09/16/17 14:25 ABG pO2 85 mmHg (85-104) 09/16/17 14:25 ABG O2 Saturation 96 % (95-98) 09/16/17 14:25 Consult Discharge Plan - Plan Referrals: Ashley Dunlap MD [Primary Care Provider] -
[2017-09-19 11:51] VITALS: BP 171/69
[2017-09-19] MEDS ORDERED: Aminoglycoside Consult 1 EACH MC ONE (12:22)
[2017-09-19] MEDS ORDERED: Vancomycin 1 EACH in 0.9 % Sodium Chloride 250 ML IVPB PRN (16:00)
--- NOTE | 2017-09-19 16:50 | Discharge Summary ---
- NOTES TO OUTPATIENT PROVIDER Notes to Outpatient Provider: Patient was admitted after experiencing SOB-and collapsed Dr. Gerber's office found to have filtrate on chest x-ray concerning for pneumonia was recently discharged from the facility with pneumonia. Treated for H Received 2 days of antibiotics and steroids patient left AGAINST MEDICAL ADVICE I did call in prescription for Levaquin as well as steroid taper Orders not resulted at time of discharge: Pending orders 09/19/17 07:56 Sodium, Urine [UCHEM] Routine Date of Encounter: 09/19/17 Time of Encounter: 12:00 - Discharge Diagnosis (1) Acute exacerbation of chronic obstructive pulmonary disease (COPD) Priority: Primary Status: Acute (2) Hospital-acquired pneumonia Priority: Primary Status: Acute (3) CKD (chronic kidney disease) stage 3, GFR 30-59 ml/min Priority: Secondary Status: Chronic (4) Diabetes Priority: Secondary Status: Acute Qualifiers: Diabetes mellitus type: type 2 Diabetes mellitus arc and gas welder insulin use: without detention use Diabetes mellitus complication status: with kidney complications Diabetes mellitus complication detail: with chronic kidney disease Chronic kidney disease stage: stage 3 (moderate) Qualified Code(s): E11.22 - Type 2 diabetes mellitus with diabetic chronic kidney disease; N18.3 - Chronic kidney disease, stage 3 (moderate) Hospital course: Mr. Soria is a 86 year old male past medical history of hypertension hyperlipidemia poorly controlled type 2 diabetes CVA CKG stage III status post pacemaker and dementia current smoker. Patient was recently discharged from this facility on 09/14/2017 after being treated for community acquired pneumonia on azithromycin. A few days later he was being evaluated at his primary care physician's office Dr. Xochilt Sin he was having difficulty holding himself up and was somewhat somnolent he was brought back to the emergency room for further evaluation-chest x-ray did show increased lung changes in the right lung base which are concerning for superimposed infiltrate. Blood cultures were obtained which were negative he was initiated on vancomycin and Zosyn and Levaquin and covered for healthcare acquired pneumonia. He was also given a steroid taper his respiratory state did improve as well as his mentation. He did have an elevated creatinine he has a history of CKD he was given some IV fluids which did improve his creatinine. Patient was requesting to leave AGAINST MEDICAL ADVICE advised patient to continue treatment since this is his second admission as well as he continues to have elevated creatinine. Patient is at the bedside and states that she can take care of him at home they do have home health. I did inform the patient and his the risk of leaving which includes the possibility of . Patient verbalized understanding and wished to leave AGAINST MEDICAL ADVICE. I did inform patient that I would call in a prescription of Levaquin and steroid taper and did advise him to follow-up with their primary care provider. Verbalized understanding. - Time Spent with Patient Total time spent providing and/or coordinating discharge services: - Discharge Medications Home Medications: Cholecalciferol (Vitamin D3) [Vitamin D3] 2,000 unit PO DAILY 05/24/15 [History] Finasteride [Proscar] 5 mg PO DAILY 05/24/15 [History] Glimepiride [Amaryl] 4 mg PO DAILY 05/24/15 [History] Pravastatin Sodium 10 mg PO DAILY 05/24/15 [History] Sertraline [Zoloft] 50 mg PO DAILY 05/24/15 [History] Docusate [Colace] 100 mg PO BID #60 capsule 06/17/15 [Rx] Azelastine 0.1% Nasal [place] [Astelin] 1 spray NS BID 03/09/16 [History] Calcitriol [Rocaltrol] 0.5 mcg PO DAILY 03/09/16 [History] Clopidogrel [Plavix] 75 mg PO DAILY #30 tablet 03/12/16 [Rx] Gabapentin [Neurontin] 300 - 600 mg PO HS 04/25/16 [History] amLODIPine [Norvasc] 5 mg PO DAILY #30 tablet 05/07/16 [Rx] Acetaminophen [Tylenol] 500 mg PO Q6HR PRN 09/11/17 [History] Donepezil [Aricept] 5 mg PO HS 09/11/17 [History] SitaGLIPtin [Januvia] 25 mg PO DAILY 09/11/17 [History] Tamsulosin [Flomax] 0.4 mg PO DAILY 09/11/17 [History] Azithromycin [Zithromax] 500 mg PO DAILY #4 tablet 09/14/17 [Rx] Allergies/Adverse Reactions: 3 Allergy/AdvReac Type Severity Reaction Status Date / Time No Known Allergies Allergy Verified 09/10/17 18:58 Date of admission: 09/18/17 14:41 Primary care physician: Ashley Acosta Consults: 09/18/17 14:52 Consult to Plane Runner [CONS] Routine Reason for Consult: Discharge planning - Constitutional Vitals: Temp Pulse Resp BP Pulse Ox 98.4 F 56 14 171/69 97 09/19/17 11:49 09/19/17 11:49 09/19/17 11:49 09/19/17 11:49 09/19/17 11:49 General appearance: Present: A&O X 3, pleasant, no acute distress - Head Head exam: Present: atraumatic, normocephalic - Eye Eye exam: Present: PERRL, conjuntiva pink, sclera anicteric Pupils: Present: PERRL - Neck Neck exam general surgery: Present: supple, trachea midline. Absent: lymphadenopathy - Respiratory Respiratory exam: Present: CTAB. Absent: accessory muscle use, rales, rhonchi, wheezes - Cardiovascular Cardiovascular exam: Present: RRR, +S1, +S2. Absent: diastolic murmur, gallop, rubs, systolic murmur - GI/Abdominal GI/Abdominal exam: Present: normal bowel sounds, soft, no peritoneal signs. Absent: distended, tenderness - Extremities Exam Extremities exam: Present: warm, radial pulses palpable and symmetrical. Absent : calf tenderness, cyanotic, pedal edema - Neurological Exam Neurological exam: Present: CN II-XII intact, oriented X3, no focal deficits. Absent: pronater drift, facial droop, speech deficit - Skin Skin exam: Present: dry, intact - Patient Status Disposition: Left Against Medical Advice Condition: Good - Discharge Instructions Follow Up With: Ashley Dunlap MD [Primary Care Provider] -
== END 2017-09-19 12:23 | disposition left against medical advice (07) | DRG 190 ==
LOC: 3BNU 12:19 → EMEROO 12:19 → 3BNU 16:50
PROVIDERS: ADMIT Family Medicine; ATTEND Family Medicine